=== PATIENT | female | born 1990 | race Caucasian/White ===

== ENCOUNTER 2017-03-30 04:50 | Inpatient (IN) | payer OTHER ==
[2017-03-30] MEDS ORDERED: OXYTOCIN 20 UNITS/1000 ML NS 1,000 ML IV SCH (04:55)
[2017-03-30] MEDS ORDERED: METHYLERGONOVINE 0.2 MG/ML 1 ML AMP IM PRN (05:29)
[2017-03-30] MEDS ORDERED: CARBOPROST TROMETHAMINE 250 MCG/ML 1 ML AMP IM PRN (05:29)
[2017-03-30] MEDS ORDERED: LIDOCAINE 1% (PF) 10 MG/ML (30 ML SDV) SQ PRN (05:29)
[2017-03-30] MEDS ORDERED: OXYTOCIN 10 UNIT/ML 1 ML VIAL IM PRN (05:29)
[2017-03-30] MEDS ORDERED: TERBUTALINE 1 MG/ML VIAL SQ PRN (05:29)
[2017-03-30] MEDS ORDERED: LACTATED RINGERS 1,000 ML IV SCH (05:30)
[2017-03-30 05:43] VITALS: BMI 41.8
[2017-03-30 05:52] LABS: Basophils % (A) 0 %; Eosinophils % (A) 0 %; HCT 32.9 % (34.0-46.0); HGB 10.9 gm/dL (11.4-16.0); Lymphocytes % (A) 6 %; MCH 27.5 pg (25.0-35.0); MCHC 33.1 g/dL (31.0-37.0); MCV 82.9 fL (80.0-100.0); Mean Platelet Volume 9.2; Monocytes # (A) 0.6 k/uL (0-1.0); Monocytes % (A) 3 %; Neutrophils # (A) 15.1 k/uL (1.3-7.7); Neutrophils % (A) 90 %; Platelet Count 220 k/uL (150-450); RBC 3.97 m/uL (3.80-5.40); RDW 14.1 % (11.5-15.5); WBC 16.8 k/uL (3.8-10.6)
--- NOTE | 2017-03-30 08:04 | P.HPOB ---
History of Present Illness H&P Date: 03/30/17 This is a 26-year-old white female 3 para now and P4 2817 EDC 2- 18 at 37-4/7 weeks' gestation. Patient presented to our hospital having delivered a baby at home. She is unknown to me or this institution, followed by Dr. Irma Martinez at [facility]. She states that at 3:00 this morning she broke her water in bad, color unknown. She rapidly went into active labor and delivered a male infant in her bed at 0340 hours. EMS had just arrived. The placenta delivered spontaneously in the EMS vehicle approximately 15 minutes later, at 0355. Patient states that this time her bleeding is minimal. She has minimal cramping. infant is in the nursery and appears to be doing well. Past medical history is significant for obesity only. Past surgical history tonsillectomy and adenoidectomy as a child. Current medications vitamins daily. ALLERGIES latex to which reports a [place] a rash. Social history is significant for tobacco smoking since the age of 17, patient admits to one half pack per day. She is single, father of the baby Peewee is involved. Patient denies marijuana heroin and opiate or other drug use. Past obstetric history normal spontaneous vaginal delivery of a liveborn female 6 lbs. 9 oz. in 2012. Patient states she had a very early ectopic that spontaneously resolved in 2014. history blood type A+, rubella status immune. Group B strep cultures negative. Gonorrhea and chlamydia cultures negative. On exam this is a pleasant white female, 5 foot 5 inches, 251 pounds, blood pressure on admission 94/53, pulse 88. Patient is afebrile. The general physical exam is within normal limits. The fundus is firm at this time, symmetric, mobile, 18 week size, midline, nontender. There are active bowel sounds. The chest is clear in all esqueda. The extremities reveal no edema. Inspection of the cervix, vagina, perineum, periurethral, and perirectal areas reveals a very small abrasion-type lesion at 6:00 that is superficial, not bleeding, and not needing of suture material. is a male, 6 pounds 8.4 ounces, 2960 g. He is in the nursery at this time under evaluation. Impression: 37-4/7 weeks intrauterine with care elsewhere, status post delivery at home with EMS present. Currently doing well. Plan: Continue care at this time. Likely discharge home tomorrow. We will obtain all records from [facility] for review. Review of Systems Constitutional: Reports as per HPI Past Medical History Additional Past Medical History / Comment(s): ENDOMETROSIS History of Any Multi-Drug Resistant Organisms: None Reported Past Surgical History: Adenoidectomy, Tonsillectomy Past Anesthesia/Blood Transfusion Reactions: Postoperative Nausea & Vomiting ( PONV) Past Psychological History: No Psychological Hx Reported Smoking Status: Current every day smoker Past Alcohol Use History: None Reported Past Drug Use History: None Reported - Past Family History Father Family Medical History: Diabetes Mellitus Medications and Allergies Home Medications Medication Instructions Recorded Confirmed Type Ranitidine HCl [Zantac] 150 mg PO HS 03/30/17 03/30/17 History Allergies Allergy/AdvReac Type Severity Reaction Status Date / Time latex Allergy Rash/Hives Verified 03/30/17 05:13 Exam - Vital Signs Vital signs: Vital Signs Temp Pulse Resp BP Pulse Ox 03/30/17 06:45 65 16 110/56 03/30/17 06:15 65 16 114/58 03/30/17 06:00 68 16 110/63 03/30/17 05:45 63 16 110/59 03/30/17 05:30 88 16 94/53 97 03/30/17 05:15 97.5 F L 81 16 92/51 97 03/30/17 04:55 97.5 F L 81 16 92/51 97 Intake and Output 03/29/17 03/30/17 03/30/17 22:59 06:59 14:59 Other: # Voids 0 Weight 113.852 kg Under HPI pleaseSee disctation please Results Result Diagrams: 03/30/17 05:15 Abnormal Lab Results - Last 24 Hours (Table) 03/30/17 Range/Units 05:15 WBC 16.8 H (3.8-10.6) k/uL Hgb 10.9 L (11.4-16.0) gm/dL Hct 32.9 L (34.0-46.0) % Neutrophils # 15.1 H (1.3-7.7) k/uL Assessment and Plan Plan: Continue post care. [place] in nursery . Possible discharge home tomorrow. Time with Patient: Greater than 30
[2017-03-30 12:23] VITALS: BP 110/59; PULSE 84; RESP 16; TEMP 98
--- NOTE | 2017-03-30 12:41 | P.DS ---
Providers Date of admission: 03/30/17 04:50 Expected date of discharge: 03/30/17 Attending physician: Sonja Martínez Primary care physician: Stated None Hospital Course: a 26-year-old female 3 para 2011 who presented at 37-4/7 weeks' gestation. Patient had her care at another institution, [facility]. She delivered a liveborn male at home, placenta delivered in the EMS vehicle. They presented for evaluation. care appears to be essentially unremarkable, please see my dictated history and physical for details. The patient at this point is doing well. She is voiding, ambulating and passing flatus without difficulty. Vital signs are stable and she is afebrile. She has minimal to moderate lochia rubra, no large clots. Pain is well controlled. Breasts are not engorged. [place] infant is in the nursery and will remain here for a period of time for antibiotics and stabilization. Patient's perineal body is clean and dry. She is requesting discharge home at this time. Patient is therefore being discharged home. She is in good condition for discharge. She will follow-up with her own physician in 6 weeks. She has an appointment already scheduled with that individual this Wednesday. I have reminded the patient to continue taking her vitamin daily. She will use [id number] products as needed for pain, she is declining option for prescription medication. I've asked her to call her physician with any fevers shakes or chills, foul smelling or copious lochia, with the passage of large blood clots, with any pain not alleviated by [id number]-[id number] medications, or indeed with any concerns. I have provided her with a prescription for a double electric breast pump per her request. We have briefly reviewed contraceptive options, and again she will discuss this with her own private physician in the office. Patient Condition at Discharge: Good Plan - Discharge Summary New Discharge Prescriptions: No Action Ranitidine HCl [Zantac] 150 mg PO HS Discharge Medication List Ranitidine HCl [Zantac] 150 mg PO HS 03/30/17 [History] Discharge Disposition: HOME SELF-CARE
== END 2017-03-30 15:00 | disposition home or self-care (01) | DRG 776 ==
LOC: 4FBP 04:50
PROVIDERS: ADMIT Obstetrics & Gynecology; ATTEND Obstetrics & Gynecology
DX: O99.335 Smoking (tobacco) complicating the puerperium (principal); Z68.41 Body mass index [BMI] 40.0-44.9, adult; F17.200 Nicotine dependence, unspecified, uncomplicated; O99.215 Obesity complicating the puerperium; Z91.040 Latex allergy status; Z83.3 Family history of diabetes mellitus; Z79.899 Other long term (current) drug therapy; Z87.42 Personal history of other diseases of the female genital tract
CPT/HCPCS: 85025; 88307

== ENCOUNTER 2017-07-26 09:27 | Emergency (ER) | payer OTHER ==
[2017-07-26 09:38] VITALS: BP 130/67; PULSE 76; RESP 18; TEMP 98.3
[2017-07-26] MEDS ORDERED: CYCLOBENZAPRINE 10 MG TAB PO STA (10:06)
[2017-07-26] MEDS ORDERED: IBUPROFEN 800 MG TAB PO STA (10:06)
--- NOTE | 2017-07-26 10:07 | ED ---
General Adult HPI - General Chief complaint: Back Pain/Injury Stated complaint: back pain Time Seen by Provider: 07/26/17 09:49 Source: patient, RN notes reviewed Mode of arrival: ambulatory Limitations: no limitations - History of Present Illness Initial comments: Patient is a 26-year-old female presenting to the emergency room today with a chief complaint of increased lower back pain. She does admit that she has a who is 4 months at home. Patient states she has no specific injury but over the last 2-3 days she's been having increased lower back pain. She admits that it's worse with movements. She states worse with bending and twisting. States had a difficult time getting out of bed due to pain. Denies any bowel or bladder incontinence or retention. Denies any saddle anesthesia. Denies any lumbar radiculopathy. Patient says she's tried Tylenol at home with no relief. Patient is not breast-feeding. Patient denies any recent fever, chills, shortness of breath, chest pain, abdominal pain, nausea or vomiting, numbness or tingling, dysuria or hematuria, constipation or diarrhea, headaches or visual changes, or any other complaints. - Related Data Home Medications Medication Instructions Recorded Confirmed [place] 1 tab PO HS 07/26/17 07/26/17 Previous Rx's Medication Instructions Recorded Cyclobenzaprine [Flexeril] 10 mg PO TID #20 tab 07/26/17 Ibuprofen [Motrin] 800 mg PO Q6HR #30 tab 07/26/17 Allergies Allergy/AdvReac Type Severity Reaction Status Date / Time latex Allergy Rash/Hives Verified 07/26/17 09:51 Review of Systems ROS Statement: Those systems with pertinent positive or pertinent negative responses have been documented in the HPI. ROS Other: All systems not noted in ROS Statement are negative. Past Medical History Additional Past Medical History / Comment(s): ENDOMETROSIS History of Any Multi-Drug Resistant Organisms: None Reported Past Surgical History: Adenoidectomy, Tonsillectomy Past Anesthesia/Blood Transfusion Reactions: Postoperative Nausea & Vomiting ( PONV) Past Psychological History: No Psychological Hx Reported Smoking Status: Current every day smoker Past Alcohol Use History: None Reported Past Drug Use History: None Reported - Past Family History Father Family Medical History: Diabetes Mellitus General Exam - General Exam Comments Initial Comments: General: The patient is awake and alert, in no distress, and does not appear acutely ill. Eye: Pupils are equal, round and reactive to light, extra-ocular movements are intact. No nystagmus. There is normal conjunctiva bilaterally. No signs of icterus. Ears, nose, mouth and throat: There are moist mucous membranes and no oral lesions. Neck: The neck is supple, there is no tenderness or JVD. Cardiovascular: There is a regular rate and rhythm. No murmur, rub or gallop is appreciated. Respiratory: Lungs are clear to auscultation, respirations are non-labored, breath sounds are equal. No wheezes, stridor, rales, or rhonchi. Musculoskeletal: Normal ROM. No step-off or deformity of the thoracic and lumbar spine with no step-off deformity. Mild tenderness lower lumbar from L1 to L3. Peripheral she was discharged on the right side of the lumbar spine. Strength 5/5. Sensation intact. Pulses equal bilaterally 2+. Neurological: A&O x 3. CN II-XII intact, There are no obvious motor or sensory deficits. Coordination appears grossly intact. Speech is normal. Skin: Skin is warm and dry and no rashes or lesions are noted. Psychiatric: Cooperative, appropriate mood & affect, normal judgment. Limitations: no limitations Course Vital Signs 07/26/17 09:36 Temperature 98.3 F Pulse Rate 76 Respiratory 18 Rate Blood Pressure 130/67 O2 Sat by Pulse 96 Oximetry Medical Decision Making - Medical Decision Making Patient has mild tenderness lower lumbar no specific injury. Patient does have a at home is felt that symptoms of lower back pain are from picking up the child. Was discussed to try to bend with these as much as possible. Patient is not breast-feeding will be placed on anti-inflammatories for pain also advised that may use muscle relaxer but may make her drowsy and to be careful when using this. Advised to follow-up over the next 2 weeks if there is no improvement. Disposition Clinical Impression: Acute low back pain Disposition: HOME SELF-CARE Condition: Good Instructions: Acute Low Back Pain (ED) Additional Instructions: Please use medications as discussed that have been sent to your pharmacy. Please follow-up with family doctor in the next 2-5 days of symptoms have not improved. Please return to emergency room if the symptoms increase or worsen or for any other concerns. Prescriptions: Cyclobenzaprine [Flexeril] 10 mg PO TID #20 tab Ibuprofen [Motrin] 800 mg PO Q6HR #30 tab Is patient prescribed a controlled substance at d/c from ED?: No Referrals: Nonstaff,Physician [Primary Care Provider] - 1-2 days Álvaro Louise DO [STAFF PHYSICIAN] - 1-2 days Time of Disposition: 10:04
== END 2017-07-26 10:25 | disposition home or self-care (01) ==
LOC: EC 09:27
DX: M54.5 Low back pain (principal); F17.200 Nicotine dependence, unspecified, uncomplicated; Z79.3 Long term (current) use of hormonal contraceptives; Z91.040 Latex allergy status
CPT/HCPCS: 99283

== ENCOUNTER 2017-09-13 11:46 | Emergency (ER) | payer OTHER ==
[2017-09-13 12:00] VITALS: TEMP 98.4
[2017-09-13 12:25] LABS: Appearance,Urine Cloudy (Clear); Bilirubin,Urine Negative (Negative); Blood,Urine Trace (Negative); Color,Urine Yellow; Glucose,Urine (UA) Negative (Negative); Ketones,Urine Negative (Negative); Leukocyte Esterase,Urine Moderate (Negative); Mucus,Urine Few /hpf; Nitrite,Urine Negative (Negative); Protein,Urine Negative (Negative); RBC,Urine 2 /hpf (0-5); Specific Gravity,Urine 1.018 (1.001-1.035); Squamous Epithelial Cell,Urine 8 /hpf (0-4); Urobilinogen,Urine <2.0 mg/dL (<2.0); WBC,Urine 13 /hpf (0-5)
[2017-09-13 12:27] LABS: Basophils # (A) 0.1 k/uL (0-0.2); Basophils % (A) 1 %; Eosinophils # (A) 0.3 k/uL (0-0.7); Eosinophils % (A) 2 %; HCT 37.2 % (34.0-46.0); HGB 12.5 gm/dL (11.4-16.0); Lymphocytes # (A) 2.2 k/uL (1.0-4.8); Lymphocytes % (A) 17 %; MCH 26.7 pg (25.0-35.0); MCHC 33.7 g/dL (31.0-37.0); MCV 79.3 fL (80.0-100.0); Mean Platelet Volume 8.5; Monocytes # (A) 0.5 k/uL (0-1.0); Monocytes % (A) 4 %; Neutrophils # (A) 9.7 k/uL (1.3-7.7); Neutrophils % (A) 76 %; Platelet Count 237 k/uL (150-450); WBC 12.8 k/uL (3.8-10.6)
[2017-09-13 12:39] LABS: ALT 23 U/L (9-52); AST 15 U/L (14-36); Alkaline Phosphatase 77 U/L (38-126); Anion Gap 11 mmol/L; Blood Urea Nitrogen 9 mg/dL (7-17); Calcium 9.4 mg/dL (8.4-10.2); Carbon Dioxide 26 mmol/L (22-30); Chloride 103 mmol/L (98-107); Glucose 120 mg/dL (74-99); Potassium 4.2 mmol/L (3.5-5.1); Sodium 140 mmol/L (137-145); Total Bilirubin 0.5 mg/dL (0.2-1.3); Total Protein 6.7 g/dL (6.3-8.2)
[2017-09-13] MEDS ORDERED: cefTRIAXone 1,000 MG VIAL (IM USE) IM STA (12:59)
--- NOTE | 2017-09-13 13:04 | ED ---
General Adult HPI - General Chief complaint: Back Pain/Injury Stated complaint: Sore Throat & Abd Pain Time Seen by Provider: 09/13/17 12:40 Source: patient, RN notes reviewed Mode of arrival: ambulatory Limitations: no limitations - History of Present Illness Initial comments: This is a 26-year-old female presented emergency Department chief complaint of sore throat and right flank pain. Patient states pain started in her throat yesterday and states her temperature she swallows. Patient has had a prior adenoidectomy and tonsillectomy. Patient reported fever this morning. She has not taken any Tylenol or Motrin. Patient states the pain is in her right side not worse with movement states nothing makes it feel better or worse this is a dull constant pain. She has no dysuria no hematuria this time. Patient reports no nausea vomiting diarrhea constipation. - Related Data Home Medications Medication Instructions Recorded Confirmed [place] 1 tab PO HS 07/26/17 07/26/17 Previous Rx's Medication Instructions Recorded Cyclobenzaprine [Flexeril] 10 mg PO TID #20 tab 07/26/17 Ibuprofen [Motrin] 800 mg PO Q6HR #30 tab 07/26/17 Sulfamethox-Tmp 800-160Mg [Bactrim 1 each PO Q12HR #20 tab 09/13/17 Ds] Allergies Allergy/AdvReac Type Severity Reaction Status Date / Time latex Allergy Rash/Hives Verified 09/13/17 12:00 Review of Systems ROS Statement: Those systems with pertinent positive or pertinent negative responses have been documented in the HPI. ROS Other: All systems not noted in ROS Statement are negative. Past Medical History Additional Past Medical History / Comment(s): ENDOMETROSIS History of Any Multi-Drug Resistant Organisms: None Reported Past Surgical History: Adenoidectomy, Tonsillectomy Past Anesthesia/Blood Transfusion Reactions: Postoperative Nausea & Vomiting ( PONV) Past Psychological History: No Psychological Hx Reported Smoking Status: Current every day smoker Past Alcohol Use History: None Reported Past Drug Use History: None Reported - Past Family History Father Family Medical History: Diabetes Mellitus General Exam Limitations: no limitations General appearance: alert, in no apparent distress Head exam: Present: atraumatic, normocephalic, normal inspection Eye exam: Present: normal appearance, PERRL, EOMI. Absent: scleral icterus, conjunctival injection, periorbital swelling ENT exam: Present: normal exam, normal oropharynx, mucous membranes moist, TM's normal bilaterally Neck exam: Present: normal inspection, full ROM. Absent: tenderness, meningismus, lymphadenopathy Respiratory exam: Present: normal lung sounds bilaterally. Absent: respiratory distress, wheezes, rales, rhonchi, stridor Cardiovascular Exam: Present: regular rate, normal rhythm, normal heart sounds. Absent: systolic murmur, diastolic murmur, rubs, gallop, clicks GI/Abdominal exam: Present: soft, normal bowel sounds. Absent: distended, tenderness, guarding, rebound, rigid Back exam: Present: CVA tenderness (R). Absent: CVA tenderness (L) Skin exam: Present: warm, dry, intact, normal color. Absent: rash Course Vital Signs 09/13/17 11:58 Temperature 98.4 F Pulse Rate 108 H Respiratory 18 Rate Blood Pressure 133/84 O2 Sat by Pulse 98 Oximetry Medical Decision Making - Medical Decision Making 26-year-old female presented for sore throat, right flank pain. Patient has negative strep most likely viral pharyngitis. Patient does have mild CVA tenderness on the right and some RBCs in her urine. This concerning for early pyelonephritis. Patient was given Rocephin, Bactrim outpatient. Return parameters were discussed. - Lab Data Result diagrams: 09/13/17 12:18 09/13/17 12:18 Lab Results 09/13/17 09/13/17 09/13/17 Range/Units 12:00 12:00 12:18 WBC 12.8 H (3.8-10.6) k/uL RBC 4.70 (3.80-5.40) m/uL Hgb 12.5 (11.4-16.0) gm/dL Hct 37.2 (34.0-46.0) % MCV 79.3 L (80.0-100.0) fL MCH 26.7 (25.0-35.0) pg MCHC 33.7 (31.0-37.0) g/dL RDW 14.0 (11.5-15.5) % Plt Count 237 (150-450) k/uL Neutrophils % 76 % Lymphocytes % 17 % Monocytes % 4 % Eosinophils % 2 % Basophils % 1 % Neutrophils # 9.7 H (1.3-7.7) k/uL Lymphocytes # 2.2 (1.0-4.8) k/uL Monocytes # 0.5 (0-1.0) k/uL Eosinophils # 0.3 (0-0.7) k/uL Basophils # 0.1 (0-0.2) k/uL Sodium (137-145) mmol/L Potassium (3.5-5.1) mmol/L Chloride (98-107) mmol/L Carbon Dioxide (22-30) mmol/L Anion Gap mmol/L BUN (7-17) mg/dL Creatinine (0.52-1.04) mg/dL Est GFR (CKD-EPI)AfAm (>60 ml/min/1.73 sqM) Est GFR (CKD-EPI)NonAf (>60 ml/min/1.73 sqM) Glucose (74-99) mg/dL Calcium (8.4-10.2) mg/dL Total Bilirubin (0.2-1.3) mg/dL AST (14-36) U/L ALT (9-52) U/L Alkaline Phosphatase (38-126) U/L Total Protein (6.3-8.2) g/dL Albumin (3.5-5.0) g/dL Urine Color Yellow Urine Appearance Cloudy H (Clear) Urine pH 5.0 (5.0-8.0) Ur Specific [place] 1.018 (1.001-1.035) Urine Protein Negative (Negative) Urine Glucose (UA) Negative (Negative) Urine Ketones Negative (Negative) Urine Blood Trace H (Negative) Urine Nitrite Negative (Negative) Urine Bilirubin Negative (Negative) Urine Urobilinogen <2.0 (<2.0) mg/dL Ur Leukocyte Esterase Moderate H (Negative) Urine RBC 2 (0-5) /hpf Urine WBC 13 H (0-5) /hpf Ur Squamous Epith Cells 8 H (0-4) /hpf Urine Mucus Few H (None) /hpf Urine HCG, Qual Not Detected (Not Detectd) Group A Strep Rapid (Negative) 09/13/17 09/13/17 Range/Units 12:18 12:18 WBC (3.8-10.6) k/uL RBC (3.80-5.40) m/uL Hgb (11.4-16.0) gm/dL Hct (34.0-46.0) % MCV (80.0-100.0) fL MCH (25.0-35.0) pg MCHC (31.0-37.0) g/dL RDW (11.5-15.5) % Plt Count (150-450) k/uL Neutrophils % % Lymphocytes % % Monocytes % % Eosinophils % % Basophils % % Neutrophils # (1.3-7.7) k/uL Lymphocytes # (1.0-4.8) k/uL Monocytes # (0-1.0) k/uL Eosinophils # (0-0.7) k/uL Basophils # (0-0.2) k/uL Sodium 140 (137-145) mmol/L Potassium 4.2 (3.5-5.1) mmol/L Chloride 103 (98-107) mmol/L Carbon Dioxide 26 (22-30) mmol/L Anion Gap 11 mmol/L BUN 9 (7-17) mg/dL Creatinine 0.60 (0.52-1.04) mg/dL Est GFR (CKD-EPI)AfAm >90 (>60 ml/min/1.73 sqM) Est GFR (CKD-EPI)NonAf >90 (>60 ml/min/1.73 sqM) Glucose 120 H (74-99) mg/dL Calcium 9.4 (8.4-10.2) mg/dL Total Bilirubin 0.5 (0.2-1.3) mg/dL AST 15 (14-36) U/L ALT 23 (9-52) U/L Alkaline Phosphatase 77 (38-126) U/L Total Protein 6.7 (6.3-8.2) g/dL Albumin 4.0 (3.5-5.0) g/dL Urine Color Urine Appearance (Clear) Urine pH (5.0-8.0) Ur Specific [place] (1.001-1.035) Urine Protein (Negative) Urine Glucose (UA) (Negative) Urine Ketones (Negative) Urine Blood (Negative) Urine Nitrite (Negative) Urine Bilirubin (Negative) Urine Urobilinogen (<2.0) mg/dL Ur Leukocyte Esterase (Negative) Urine RBC (0-5) /hpf Urine WBC (0-5) /hpf Ur Squamous Epith Cells (0-4) /hpf Urine Mucus (None) /hpf Urine HCG, Qual (Not Detectd) Group A Strep Rapid Negative (Negative) Disposition Clinical Impression: Pyelonephritis, Right flank pain, Acute pharyngitis Disposition: HOME SELF-CARE Condition: Stable Instructions: Kidney Infection (ED) Additional Instructions: Please return to the Emergency Department if symptoms worsen or any other concerns. Prescriptions: Sulfamethox-Tmp 800-160Mg [Bactrim Ds] 1 each PO Q12HR #20 tab Is patient prescribed a controlled substance at d/c from ED?: No Referrals: Laura Payan MD [Primary Care Provider] - 1-2 days Time of Disposition: 13:03
[2017-09-13 13:31] VITALS: BP 125/67; PULSE 100; RESP 20
== END 2017-09-13 13:31 | disposition home or self-care (01) ==
LOC: EC 11:46
DX: N12 Tubulo-interstitial nephritis, not specified as acute or chronic (principal); J02.9 Acute pharyngitis, unspecified; F17.200 Nicotine dependence, unspecified, uncomplicated; Z79.3 Long term (current) use of hormonal contraceptives; Z91.040 Latex allergy status; Z98.890 Other specified postprocedural states
CPT/HCPCS: 36415; 80053; 85025; 81001; 81025; 87086; 87081; 87430; 99283; 96372; J0696

== ENCOUNTER 2019-02-16 16:01 | Emergency (ER) | payer OTHER ==
[2019-02-16 16:09] VITALS: PULSE 86; RESP 16
[2019-02-16 16:28] LABS: Amorphous Sediment,Urine Rare /hpf; Appearance,Urine Clear (Clear); Bacteria,Urine Rare /hpf; Bilirubin,Urine Negative (Negative); Blood,Urine Trace (Negative); Color,Urine Yellow; Glucose,Urine (UA) Negative (Negative); Ketones,Urine Negative (Negative); Leukocyte Esterase,Urine Small (Negative); Mucus,Urine Few /hpf; Nitrite,Urine Negative (Negative); PH, Urine 5.5 (5.0-8.0); Protein,Urine Negative (Negative); RBC,Urine 2 /hpf (0-5); Squamous Epithelial Cell,Urine 1 /hpf (0-4); Urobilinogen,Urine <2.0 mg/dL (<2.0)
--- NOTE | 2019-02-16 16:54 | ED ---
Female Urogenital HPI - General Chief complaint: Abdominal Pain Stated complaint: Abd pain/cramping, Time Seen by Provider: 02/16/19 16:30 Source: family, RN notes reviewed, old records reviewed Mode of arrival: ambulatory Limitations: no limitations - History of Present Illness Initial comments: This is a 28-year-old female [place] for evaluation positive test was about 2 months. Patient coming in for evaluation having mild abdominal cramping suprapubic cramping diffuse with no specific pain or stabbing pain. No vaginal bleeding or loss of fluid no nausea vomiting no other significant complaints or symptoms. Patient does have OB that she will follow with. Patient has no recent fevers or any other significant complaints. Symptoms started yesterday crampy in nature and persistent throughout today. History of 1 prior miscarriage MD Complaint: other (Abdominal suprapubic cramping) -: days(s) Location: suprapubic Severity: mild Severity scale (1-10): 3 Quality: cramping Consistency: intermittent, now resolved Improves with: none Worsens with: none Last Menstrual Period: 12/13/18 Patient : Yes - Related Data Home Medications Medication Instructions Recorded Confirmed [place] 1 tab PO HS 07/26/17 07/26/17 Previous Rx's Medication Instructions Recorded Cyclobenzaprine [Flexeril] 10 mg PO TID #20 tab 07/26/17 Ibuprofen [Motrin] 800 mg PO Q6HR #30 tab 07/26/17 Sulfamethox-Tmp 800-160Mg [Bactrim 1 each PO Q12HR #20 tab 09/13/17 Ds] Allergies Allergy/AdvReac Type Severity Reaction Status Date / Time latex Allergy Rash/Hives Verified 02/16/19 16:09 Review of Systems ROS Statement: Those systems with pertinent positive or pertinent negative responses have been documented in the HPI. ROS Other: All systems not noted in ROS Statement are negative. Past Medical History Additional Past Medical History / Comment(s): ENDOMETROSIS History of Any Multi-Drug Resistant Organisms: None Reported Past Surgical History: Adenoidectomy, Tonsillectomy Past Anesthesia/Blood Transfusion Reactions: Postoperative Nausea & Vomiting (PONV) Past Psychological History: No Psychological Hx Reported Smoking Status: Former smoker Past Alcohol Use History: None Reported Past Drug Use History: None Reported - Past Family History Father Family Medical History: Diabetes Mellitus General Exam Limitations: no limitations General appearance: alert, in no apparent distress Head exam: Present: atraumatic, normocephalic, normal inspection Eye exam: Present: normal appearance, PERRL, EOMI. Absent: scleral icterus, conjunctival injection, periorbital swelling ENT exam: Present: normal exam, mucous membranes moist Neck exam: Present: normal inspection. Absent: tenderness, meningismus, lymphadenopathy Respiratory exam: Present: normal lung sounds bilaterally. Absent: respiratory distress, wheezes, rales, rhonchi, stridor Cardiovascular Exam: Present: regular rate, normal rhythm, normal heart sounds. Absent: systolic murmur, diastolic murmur, rubs, gallop, clicks GI/Abdominal exam: Present: soft, normal bowel sounds. Absent: distended, tenderness, guarding, rebound, rigid Extremities exam: Present: normal inspection, full ROM, normal capillary refill. Absent: tenderness, pedal edema, joint swelling, calf tenderness Back exam: Present: normal inspection Neurological exam: Present: alert, oriented X3, CN II-XII intact Psychiatric exam: Present: normal affect, normal mood Skin exam: Present: warm, dry, intact, normal color. Absent: rash Course Vital Signs 02/16/19 16:07 Temperature 98.2 F Pulse Rate 86 Respiratory 16 Rate Blood Pressure 138/81 O2 Sat by Pulse 100 Oximetry - Reevaluation(s) Reevaluation #1: 02/16/19 18:24 Medical records reviewed Reevaluation #2: 02/16/19 18:24 Will send quantitative beta hCG and patient follow up with OB Reevaluation #3: 02/16/19 18:24 Spoke with The patient family at length questions are answered Medical Decision Making - Medical Decision Making 28 female to the ER for evaluation early , gestational sac seen on ultrasound. Patient will continue follow-up with OB return if symptoms worsen bleeding or severe pain - Lab Data Lab Results 02/16/19 Range/Units 16:12 Urine Color Yellow Urine Appearance Clear (Clear) Urine pH 5.5 (5.0-8.0) Ur Specific [place] 1.030 (1.001-1.035) Urine Protein Negative (Negative) Urine Glucose (UA) Negative (Negative) Urine Ketones Negative (Negative) Urine Blood Trace H (Negative) Urine Nitrite Negative (Negative) Urine Bilirubin Negative (Negative) Urine Urobilinogen <2.0 (<2.0) mg/dL Ur Leukocyte Esterase Small H (Negative) Urine RBC 2 (0-5) /hpf Urine WBC 2 (0-5) /hpf Ur Squamous Epith Cells 1 (0-4) /hpf Amorphous Sediment Rare H (None) /hpf Urine Bacteria Rare H (None) /hpf Urine Mucus Few H (None) /hpf - Radiology Data Radiology results: report reviewed (US POSITIVE FOR GESTATIONAL SACK EARLY ), image reviewed Disposition Clinical Impression: Early stage of Disposition: HOME SELF-CARE Condition: Good Instructions (If sedation given, give patient instructions): Abdominal Pain in (ED) Is patient prescribed a controlled substance at d/c from ED?: No Referrals: Laura Payan MD [Primary Care Provider] - 1-2 days
--- NOTE | 2019-02-16 18:18 | US ---
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 Unknown LMP. Cramping. No spotting. EXAM PERFORMED: Transabdominal (TA) EXAM MEASUREMENTS: GESTATIONAL AGE / DATING Dates by LMP: LMP unknown Dates by First Scan: No previous this is first scan Dates by Current Scan for: Unable to date by today's study MATERNAL ANATOMY Uterus: 8.9 x 6.3 x 4.2 cm Right Ovary: 3.6 x 2.3 x 2.4 cm Left Ovary: 2.9 x 1.7 x 1.8 cm Post CDS / Adnexa: no free fluid Presence of free fluid: no Presence of corpus luteal cyst: right ovarian rouinded focus with peripheral vascular flow measuring 2.1 x 2.0 x 2.1 cm Presence of subchorionic bleed: no GESTATION / SURVEY MSD: 0.6 cm, too small to determine dates IUP: GS visualized in endometrial canal Date of LMP: Unknown LMP, Beta HcG (if available): Not available at this time IMPRESSION: Positive for intrauterine with gestational sac visualized in endometrial canal; too small t o determine dates. No visulaized yolk sac or embryonic pole at this time.
[2019-02-16 18:40] VITALS: BP 104/62; TEMP 97.9
== END 2019-02-16 18:44 | disposition home or self-care (01) ==
LOC: EC 16:01
DX: Z34.90 Encounter for supervision of normal pregnancy, unspecified, unspecified trimester (principal); Z79.3 Long term (current) use of hormonal contraceptives; Z91.040 Latex allergy status; Z87.891 Personal history of nicotine dependence
CPT/HCPCS: 76801; 81001; 99284

== ENCOUNTER 2019-05-05 09:17 | Emergency (ER) | payer OTHER ==
[2019-05-05 09:23] VITALS: RESP 18
[2019-05-05] MEDS ORDERED: diphenhydrAMINE 50 MG/ML 1 ML VIAL IVP STA ×2 (09:52→14:45)
[2019-05-05] MEDS ORDERED: METOCLOPRAMIDE 5 MG/ML 2 ML VIAL IVP STA (09:52)
[2019-05-05] MEDS ORDERED: ACETAMINOPHEN TAB 500 MG TAB PO STA ×2 (09:52→18:41)
[2019-05-05] MEDS ORDERED: SODIUM CHLORIDE 0.9% 1,000 ML IV STA (09:52)
--- NOTE | 2019-05-05 10:14 | ED ---
General Adult HPI - General Source: patient, RN notes reviewed, old records reviewed Mode of arrival: ambulatory Limitations: no limitations <Stacia Valero - Last Filed: 05/05/19 17:43> <Jed Schneider - Last Filed: 05/05/19 18:12> - General Chief complaint: Headache Stated complaint: headache, 17 wks preg Time Seen by Provider: 05/05/19 09:26 - History of Present Illness Initial comments: Set 28-year-old female presents emergency department today with 3 weeks of headache. She is approximately 17 weeks . She is a female. Patient reports that she's been having this headache for the past 3 weeks. She states that Tylenol and occasional motrin has not been helping. She was seen at [facility] and was given migraine cocktail sent home on Wednesday. Patient OBGYN is Dr. Martinez. 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 Patient states that she feels a pressure and pain behind her eyes. Patient states that she has had no nausea or vomiting. Headache is worse with bright lights and loud noises. (Stacia Valero) - Related Data Home Medications Medication Instructions Recorded Confirmed Ferrous Sulfate [Feosol] 325 mg PO DAILY 05/05/19 05/05/19 Hxt-Lonm-Tkonu Acid 1 cap PO DAILY 05/05/19 05/05/19 [-U Capsule (formulary)] Allergies Allergy/AdvReac Type Severity Reaction Status Date / Time latex Allergy Rash/Hives Verified 05/05/19 11:36 Review of Systems ROS Other: All systems not noted in ROS Statement are negative. <Stacia Valero - Last Filed: 05/05/19 17:43> ROS Other: All systems not noted in ROS Statement are negative. <Jed Schneider - Last Filed: 05/05/19 18:12> ROS Statement: Those systems with pertinent positive or pertinent negative responses have been documented in the HPI. Past Medical History Additional Past Medical History / Comment(s): ENDOMETROSIS History of Any Multi-Drug Resistant Organisms: None Reported Past Surgical History: Adenoidectomy, Tonsillectomy Past Anesthesia/Blood Transfusion Reactions: Postoperative Nausea & Vomiting (PONV) Past Psychological History: Anxiety, Depression Smoking Status: Former smoker Past Alcohol Use History: None Reported Past Drug Use History: None Reported - Past Family History Father Family Medical History: Diabetes Mellitus <Stacia Valero - Last Filed: 05/05/19 17:43> General Exam Limitations: no limitations General appearance: alert, in no apparent distress Head exam: Present: atraumatic, normocephalic, normal inspection Eye exam: Present: normal appearance, PERRL, EOMI, other (Possible papilledema bilaterally, unable to fully acess due to non dilated exam. ). Absent: scleral icterus, conjunctival injection, periorbital swelling ENT exam: Present: normal exam, mucous membranes moist Neck exam: Present: normal inspection. Absent: tenderness, meningismus, lymphadenopathy Respiratory exam: Present: normal lung sounds bilaterally. Absent: respiratory distress, wheezes, rales, rhonchi, stridor Cardiovascular Exam: Present: regular rate, normal rhythm, normal heart sounds. Absent: systolic murmur, diastolic murmur, rubs, gallop, clicks GI/Abdominal exam: Present: soft, normal bowel sounds. Absent: distended, tende rness, guarding, rebound, rigid Extremities exam: Present: normal inspection, full ROM, normal capillary refill. Absent: tenderness, pedal edema, joint swelling, calf tenderness Back exam: Present: normal inspection Neurological exam: Present: alert, oriented X3, CN II-XII intact Expanded Patient oriented to: Present: person, place, time Speech: Present: fluid speech Cranial nerves: EOM's Intact: Normal Cerebellar function: Finger to Nose: Normal Upper motor neuron: José Miguel Neglect: Normal Sensory exam: Upper Extremity Light Touch: Normal, Lower Extremity Light Touch: Normal Motor strength exam: RUE: 5, LUE: 5, RLE: 5, LLE: 5 Psychiatric exam: Present: normal affect, normal mood Skin exam: Present: warm, dry, intact, normal color. Absent: rash <Stacia Valero - Last Filed: 05/05/19 17:43> - General Exam Comments Initial Comments: 28-year-old female. Alert and oriented 3. No significant distress. (Stacia Banda) Course <Stacia Valero - Last Filed: 05/05/19 17:43> <Jed Schneider - Last Filed: 05/05/19 18:12> Vital Signs 05/05/19 05/05/19 05/05/19 09:20 13:23 17:29 Temperature 97.9 F Pulse Rate 81 71 74 Respiratory 18 18 18 Rate Blood Pressure 140/83 132/56 140/70 O2 Sat by Pulse 100 99 100 Oximetry - Reevaluation(s) Reevaluation #1: 05/05/19 10:[address] Delacruz who will be down to the emergency department to evaluate Patient. Recommended ordering Fioricet, but patient did not take as she has taken tylenol recently 05/05/19 17:43 (Stacia Valero) Reevaluation #2: 05/05/19 16:18 is reevaluated, and bed setting her headache is a 6 out of 10. Patient reports she does not want anything more for her headache or pain at this time. I did get consent from patient's SH[employer] Dr. Martinez about proceeding with an MRI. (Stacia Valero) Reevaluation #3: 05/05/19 16:[address] Delacruz wants to be consulted when the patient's MRI is back. (Stacia Valero) Reevaluation #4: 05/05/19 18:11 Ultrasound had been performed, heart tones at 144. (Jed Schneider) Medical Decision Making - Lab Data Result diagrams: 05/05/19 10:20 05/05/19 10:20 - Radiology Data Radiology results: report reviewed <Stacia Valero - Last Filed: 05/05/19 17:43> - Lab Data Result diagrams: 05/05/19 10:20 05/05/19 10:20 <Jed Schneider - Last Filed: 05/05/19 18:12> - Medical Decision Making 28-year-old female Joceline 17 weeks . She presents today for headache. This headache for the past 3 weeks. She has no acute neurological deficits. She reports she states it seems to be frontal headache and complains of some pain behind her eyes. Patient case was discussed with Dr. Solares whom is On-Call Neurologist, whom came to evaluate the Patient. Recommended Proceeding with an MR Venogram and MRI without contrast for patient headache and being . Patient's Headache Did Improve Somewhat with Reglan Benadryl and Fluids and Tylenol. She Was Able to Eat in the Emergency Department. Patient's Labs Are Otherwise Unremarkable. Ultrasound Was Completed Showed Viable IUP with Heart Rate Measured 145 Bpm. Patient's Case Was Signed out to Attending Physician at 5:00pm Pending Results of MR Venogram. Dr. Solares States He Wants to Be Consulted in Regards to the Findings. MR venogram was read by radiologist Dr. Joel shows concern for possible sinus thrombosis. Patient be started on heparin. Patient informed of this. Patient's case was discussed then with Dr. Schneider and Dr. Solares, and will facilitate a transfer. (Stacia Valero) Patient's care was signed out to me at shift change at 5 PM awaiting MRI. Patient had previously been evaluated by neurology who recommended MRI/MRA V4 concern for thrombus. Initial MRI report was negative for sinus thrombosis however felt to be a filling defect on reevaluation, addendum was added to his MRI report. Patient was initiated on heparin, recommendation from Dr. Delacruz the neurologist was for high-dose heparin with no bolus. This was initiated in the emergency department. I discussed case with the ER physician at [facility] Dr. Cohen, at 1740, will check with his OB regarding transfer. [facility] recommended transfer to [facility] discussed with covering neurology Dr. Gabriel as well as obstetrics, all parties agreeable with heparin and transfer at this time. (Jed Schneider) - Lab Data Lab Results 05/05/19 05/05/19 05/05/19 Range/Units 10:15 10:20 10:20 WBC 10.3 (3.8-10.6) k/uL RBC 4.34 (3.80-5.40) m/uL Hgb 11.8 (11.4-16.0) gm/dL Hct 35.2 (34.0-46.0) % MCV 81.0 (80.0-100.0) fL MCH 27.1 (25.0-35.0) pg MCHC 33.5 (31.0-37.0) g/dL RDW 14.5 (11.5-15.5) % Plt Count 210 (150-450) k/uL Neutrophils % 71 % Lymphocytes % 23 % Monocytes % 4 % Eosinophils % 1 % Basophils % 1 % Neutrophils # 7.3 (1.3-7.7) k/uL Lymphocytes # 2.3 (1.0-4.8) k/uL Monocytes # 0.4 (0-1.0) k/uL Eosinophils # 0.1 (0-0.7) k/uL Basophils # 0.1 (0-0.2) k/uL PT (9.0-12.0) sec INR (<1.2) APTT (22.0-30.0) sec Sodium 136 L (137-145) mmol/L Potassium 4.0 (3.5-5.1) mmol/L Chloride 106 (98-107) mmol/L Carbon Dioxide 21 L (22-30) mmol/L Anion Gap 9 mmol/L BUN 6 L (7-17) mg/dL Creatinine 0.36 L (0.52-1.04) mg/dL Est GFR (CKD-EPI)AfAm >90 (>60 ml/min/1.73 sqM) Est GFR (CKD-EPI)NonAf >90 (>60 ml/min/1.73 sqM) Glucose 82 (74-99) mg/dL Calcium 9.3 (8.4-10.2) mg/dL Magnesium 1.8 (1.6-2.3) mg/dL Total Bilirubin 0.5 (0.2-1.3) mg/dL AST 16 (14-36) U/L ALT 12 (4-34) U/L Alkaline Phosphatase 69 (38-126) U/L Total Protein 7.1 (6.3-8.2) g/dL Albumin 3.9 (3.5-5.0) g/dL Urine Color Light Yellow Urine Appearance Clear (Clear) Urine pH 6.0 (5.0-8.0) Ur Specific Devens 1.011 (1.001-1.035) Urine Protein Negative (Negative) Urine Glucose (UA) Negative (Negative) Urine Ketones Negative (Negative) Urine Blood Negative (Negative) Urine Nitrite Negative (Negative) Urine Bilirubin Negative (Negative) Urine Urobilinogen <2.0 (<2.0) mg/dL Ur Leukocyte Esterase Negative (Negative) 05/05/19 Range/Units 10:20 WBC (3.8-10.6) k/uL RBC (3.80-5.40) m/uL Hgb (11.4-16.0) gm/dL Hct (34.0-46.0) % MCV (80.0-100.0) fL MCH (25.0-35.0) pg MCHC (31.0-37.0) g/dL RDW (11.5-15.5) % Plt Count (150-450) k/uL Neutrophils % % Lymphocytes % % Monocytes % % Eosinophils % % Basophils % % Neutrophils # (1.3-7.7) k/uL Lymphocytes # (1.0-4.8) k/uL Monocytes # (0-1.0) k/uL Eosinophils # (0-0.7) k/uL Basophils # (0-0.2) k/uL PT 9.8 (9.0-12.0) sec INR 0.9 (<1.2) APTT 23.4 (22.0-30.0) sec Sodium (137-145) mmol/L Potassium (3.5-5.1) mmol/L Chloride (98-107) mmol/L Carbon Dioxide (22-30) mmol/L Anion Gap mmol/L BUN (7-17) mg/dL Creatinine (0.52-1.04) mg/dL Est GFR (CKD-EPI)AfAm (>60 ml/min/1.73 sqM) Est GFR (CKD-EPI)NonAf (>60 ml/min/1.73 sqM) Glucose (74-99) mg/dL Calcium (8.4-10.2) mg/dL Magnesium (1.6-2.3) mg/dL Total Bilirubin (0.2-1.3) mg/dL AST (14-36) U/L ALT (4-34) U/L Alkaline Phosphatase (38-126) U/L Total Protein (6.3-8.2) g/dL Albumin (3.5-5.0) g/dL Urine Color Urine Appearance (Clear) Urine pH (5.0-8.0) Ur Specific Devens (1.001-1.035) Urine Protein (Negative) Urine Glucose (UA) (Negative) Urine Ketones (Negative) Urine Blood (Negative) Urine Nitrite (Negative) Urine Bilirubin (Negative) Urine Urobilinogen (<2.0) mg/dL Ur Leukocyte Esterase (Negative) - Radiology Data Also showed heart tones of 1 44 bpm. Estimated delivery date is 10/14/2019. Patient is 16 weeks \6 days old. (Stacia Valero) Disposition Is patient prescribed a controlled substance at d/c from ED?: No Time of Disposition: 17:45 <Stacia Valero - Last Filed: 05/05/19 17:43> - Out of Hospital Transfer - Req. Specs Out of Hospital Transfer - Requested Specifics: Other Emergency Center (Transferred to [facility] <Jed Schneider - Last Filed: 05/05/19 18:12> Clinical Impression: Thrombosis transverse sinus, Disposition: OTHER INSTITUTION NOT DEFINED Condition: Stable Referrals: Laura Payan MD [Primary Care Provider] - 1-2 days
[2019-05-05] MEDS ORDERED: BUTALB/APAP/CAFF 50-325-40MG TAB PO STA (10:24)
[2019-05-05 10:33] LABS: Basophils # (A) 0.1 k/uL (0-0.2); Basophils % (A) 1 %; Eosinophils # (A) 0.1 k/uL (0-0.7); Eosinophils % (A) 1 %; HCT 35.2 % (34.0-46.0); HGB 11.8 gm/dL (11.4-16.0); Lymphocytes # (A) 2.3 k/uL (1.0-4.8); Lymphocytes % (A) 23 %; MCH 27.1 pg (25.0-35.0); MCHC 33.5 g/dL (31.0-37.0); Mean Platelet Volume 8.8; Monocytes # (A) 0.4 k/uL (0-1.0); Monocytes % (A) 4 %; Neutrophils # (A) 7.3 k/uL (1.3-7.7); Neutrophils % (A) 71 %; Platelet Count 210 k/uL (150-450); RBC 4.34 m/uL (3.80-5.40); RDW 14.5 % (11.5-15.5); WBC 10.3 k/uL (3.8-10.6)
[2019-05-05 10:33] LABS: Appearance,Urine Clear (Clear); Bilirubin,Urine Negative (Negative); Blood,Urine Negative (Negative); Color,Urine Light Yellow; Glucose,Urine (UA) Negative (Negative); Ketones,Urine Negative (Negative); Leukocyte Esterase,Urine Negative (Negative); Nitrite,Urine Negative (Negative); Protein,Urine Negative (Negative); Specific Gravity,Urine 1.011 (1.001-1.035); Urobilinogen,Urine <2.0 mg/dL (<2.0)
[2019-05-05 10:46] LABS: ALT 12 U/L (4-34); AST 16 U/L (14-36); African American GFR (CKD) >90 (>60 ml/min/1.73 sqM); Albumin 3.9 g/dL (3.5-5.0); Alkaline Phosphatase 69 U/L (38-126); Anion Gap 9 mmol/L; Blood Urea Nitrogen 6 mg/dL (7-17); Calcium 9.3 mg/dL (8.4-10.2); Carbon Dioxide 21 mmol/L (22-30); Chloride 106 mmol/L (98-107); Glucose 82 mg/dL (74-99); Magnesium 1.8 mg/dL (1.6-2.3); Non-African American GFR(CKD) >90 (>60 ml/min/1.73 sqM); Sodium 136 mmol/L (137-145); Total Bilirubin 0.5 mg/dL (0.2-1.3); Total Protein 7.1 g/dL (6.3-8.2)
--- NOTE | 2019-05-05 11:42 | US ---
EXAMINATION TYPE: US OB limited DATE OF EXAM: 05/05/2019 COMPARISON: NONE CLINICAL HISTORY: 17 weeks heart tones. Heart tones. Headaches EXAM PERFORMED: Transabdominal (TA) GESTATIONAL AGE / DATING Physician Established: (16 weeks/6 days) EDC: 10/14/2019 No growth performed on today?s study per ordering physician SURVEY HEART RATE: 144 bpm RHYTHM: Normal IMPRESSION: Limited exam, heart rate detected as described.
--- NOTE | 2019-05-05 15:16 | P.CNNES ---
History of Present Illness Consult date: 05/05/19 Requesting physician: Stacia Valero Reason for Consult: Cephalgia, History of Present Illness: Patient is a 28-year-old female, who has no history of migraines, or any kind of headaches, is currently 17 weeks , developed headache 3 weeks ago. It was initially mild involving the bifrontal region, but over time has progressed and now involves bitemporal region and also back of the head. The headache is very intense, rated 7/10. Patient states that she is feeling weak all over, moving slower, denies any numbness tingling diplopia, blurred vision or vomiting. She does feel nauseous at times. Patient did visit [facility] ER, who gave her migraine cocktail, sent home and recommended her to take Tylenol. Patient says that Tylenol is was working only in the beginning but stopped working. She tried Motrin, which worked only one time and the second time it did not. She also tried Esgic, which worked only for 1 day and then the headache came back. 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 Patient denies tobacco use at this time. She did smoke half pack per day off and on from age [age]. She stopped smoking since she became . Review of Systems As above in detail. Otherwise completely unremarkable. Denies any chest pain shortness of breath wheezing or cough. Past Medical History Additional Past Medical History / Comment(s): ENDOMETROSIS History of Any Multi-Drug Resistant Organisms: None Reported Past Surgical History: Adenoidectomy, Tonsillectomy Past Anesthesia/Blood Transfusion Reactions: Postoperative Nausea & Vomiting (PONV) Past Psychological History: Anxiety, Depression Smoking Status: Former smoker Past Alcohol Use History: None Reported Past Drug Use History: None Reported - Past Family History Father Family Medical History: Diabetes Mellitus Medications and Allergies Home Medications Medication Instructions Recorded Confirmed Type Ferrous Sulfate [Feosol] 325 mg PO DAILY 05/05/19 05/05/19 History Lmv-Pwxh-Wlljg Acid 1 cap PO DAILY 05/05/19 05/05/19 History [-U Capsule (formulary)] Allergies Allergy/AdvReac Type Severity Reaction Status Date / Time latex Allergy Rash/Hives Verified 05/05/19 11:36 Physical Examination - Vital Signs Vital Signs: Vital Signs Temp Pulse Resp BP Pulse Ox 05/05/19 09:20 97.9 F 81 18 140/83 100 Intake and Output 05/04/19 05/05/19 05/05/19 22:59 06:59 14:59 Other: Weight 113.398 kg On examination patient is a young female, who appears to be in distress, looks sick. Patient is otherwise alert and awake, fully oriented to time place and person. Speech and language functions are normal. Attention and concentration fund of knowledge is adequate. On cranial nerve examination pupils are round, equal, somewhat dilated, 5 mm, reacting to 4 mm bilaterally. Visual esqueda are full on confrontation, extraocular muscles are intact with no nystagmus. Funduscopic examination revealed evidence of obvious disc edema bilaterally. Spontaneous venous pulsations were not seen. Face is symmetric and tongue protrudes the midline. Palatal elevation sensation normal. On muscle strength testing there is no pronator drift and the strength is normal in arms and legs distally and proximally. Reflexes are 2+ and plantars downgoing sensory touch is equal. No ataxia for [id number] testing. Tone and bulk of muscles normal. No carotid bruit or murmur, peripheral pulses present. Results - Laboratory Findings CBC and BMP: 05/05/19 10:20 05/05/19 10:20 Abnormal Lab Findings: Abnormal Labs 05/05/19 10:20 Sodium 136 L Carbon Dioxide 21 L BUN 6 L Creatinine 0.36 L Assessment and Plan Assessment: * 28-year-old female, currently 17 weeks has developed new onset of constant headaches for the past 3 weeks, progressively getting worse. Started out bifrontal, then extended to bitemporal and now even involves back of the head. Her neurological examination revealed papilledema. Rule out cerebral venous sinus thrombosis, or other intracranial process or mass lesion. Plan: * Stat MRI of the brain without contrast and MRV of head. * Further management will be based upon above test results. ADDENDUM: 5:29 pm Patient underwent MRI of the brain. It was essentially normal. No acute ischemia. MRV of the brain revealed 8 mm segment of lack of venous signal in the transverse sinus on the right side. There is also possible small filling defects within the left side transverse sinus and sigmoid sinus that measures up to 5 mm. This is somewhat suspicious for bilateral transverse and sigmoid sinus limited vein thrombosis. Patient to be started on heparin drip DVT protocol, with no bolus. Suggest transfer to a tertiary care center for closer monitoring. Suggest neuro intervention evaluation as well.
--- NOTE | 2019-05-05 16:59 | MR ---
EXAMINATION TYPE: MR venography head wo con DATE OF EXAM: 05/05/2019 COMPARISON: HISTORY: Possible cerebral venous sinus thrombosis, Severe headache Magnetic resonance venographic images were obtained of the brain. There is venous flow demonstrated i n the superior sagittal sinus. There is venous flow in the sigmoid and straight sinuses. There is ernst w in both internal jugular veins. There is no evidence of vein thrombosis. IMPRESSION: Normal exam. No evidence of cerebral vein thrombosis.
--- NOTE | 2019-05-05 17:19 | MR ---
EXAMINATION TYPE: MR brain wo con DATE OF EXAM: 05/05/2019 COMPARISON: HISTORY: Possible cerebral venous sinus thrombosis, Severe headache Multiplanar multiecho imaging of the brain was performed without contrast. Ventricles and sulci appear normal. There is no mass effect nor midline shift. There is no evidence o f intracranial hemorrhage. Diffusion images show no evidence of cortical infarct. Rivers-white matter s tructures have normal signal pattern. There is no evidence of cerebral edema. Brainstem appears kyle l. Sella turcica is normal. Corpus callosum is normal. IMPRESSION: Normal MR scan of the brain.
[2019-05-05] MEDS ORDERED: HEPARIN SODIUM,PORCINE 5,000 UNIT/ML 1 ML VIAL IV PRN (17:26)
[2019-05-05] MEDS ORDERED: HEPARIN SOD,PORK IN 0.45% NACL 25,000 UNIT in 0.45% NACL 1 250ML.BAG IV SCH (17:30)
[2019-05-05 18:00] LABS: INR 0.9 (<1.2); Partial Thromboplastin Time 23.4 sec (22.0-30.0); Prothrombin Time 9.8 sec (9.0-12.0)
[2019-05-05 20:37] VITALS: BP 124/66; PULSE 79; TEMP 99.1
== END 2019-05-05 21:40 | disposition other institution (70) ==
LOC: EC 09:17
DX: O22.5 Cerebral venous thrombosis in pregnancy (principal); Z3A.16 16 weeks gestation of pregnancy; Z87.891 Personal history of nicotine dependence; Z91.040 Latex allergy status; Z87.42 Personal history of other diseases of the female genital tract
CPT/HCPCS: 99285 ×2; 96365 ×2; 96366 ×3; 96375 ×3; 96361 ×9; 36415; 80053; 83735; 85025; 85610; 85730; 81003; 76815; 70544; 70551; J1200; J2765; J1644

== ENCOUNTER 2019-10-16 14:41 | Emergency (ER) | payer OTHER ==
[2019-10-16 14:45] VITALS: TEMP 98.6
[2019-10-16] MEDS ORDERED: SODIUM CHLORIDE 0.9% 1,000 ML IV STA (14:52)
--- NOTE | 2019-10-16 14:58 | ED ---
Abdominal Pain HPI - General Chief Complaint: Abdominal Pain Stated Complaint: Lower Abd Pain Time Seen by Provider: 10/16/19 14:46 Source: patient Mode of arrival: ambulatory Limitations: no limitations - History of Present Illness Initial Comments: 28-year-old female patient presents to the emergency department today for evaluation of pelvic pain. Patient states that she had a vaginal delivery on 10/05/2019. She is G4, P3, with 3 vaginal deliveries. States that she was having her normal bleeding after the delivery. States she has been having sharp stabbing pains in her suprapubic region in her vaginal area. Initially she thought this may be normal however the pain has persisted has been getting worse. States yesterday she passed a large piece of "tissue", she believes it may have been part of her placenta. She states that she had an increase in bleeding after passing the tissue and today the bleeding has stopped completely. She did try to contact her OBGYN from [facility]. She has been unable to make an appointment and they told her to be evaluated in the emergency department today. Patient states she is uncomfortable with going back to [facility] so she presented here for further evaluation. She denies any fever or chills. States that her vaginal bleeding did smell different from her previous deliveries. Denies any back pain. Denies hematuria, dysuria, urinary frequency, urinary urgency. Patient denies any recent rash, cough, shortness of breath, chest pain, nausea, vomiting, diarrhea, constipation, numbness, tingling, dizziness, weakness, headache, visual changes, or any other complaints. - Related Data Home Medications Medication Instructions Recorded Confirmed Ferrous Sulfate [Feosol] 325 mg PO DAILY 05/05/19 05/05/19 [id number] Acid 1 cap PO DAILY 05/05/19 05/05/19 [-U Capsule (formulary)] Previous Rx's Medication Instructions Recorded Cephalexin [Keflex] 500 mg PO BID #14 cap 10/16/19 Allergies Allergy/AdvReac Type Severity Reaction Status Date / Time latex Allergy Rash/Hives Verified 10/16/19 14:45 Review of Systems ROS Statement: Those systems with pertinent positive or pertinent negative responses have been documented in the HPI. ROS Other: All systems not noted in ROS Statement are negative. Past Medical History Additional Past Medical History / Comment(s): ENDOMETROSIS History of Any Multi-Drug Resistant Organisms: None Reported Past Surgical History: Adenoidectomy, Tonsillectomy Past Anesthesia/Blood Transfusion Reactions: Postoperative Nausea & Vomiting (PONV) Past Psychological History: Anxiety, Depression Past Alcohol Use History: None Reported Past Drug Use History: None Reported - Past Family History Father Family Medical History: Diabetes Mellitus General Exam Limitations: no limitations General appearance: alert, in no apparent distress, other (This is a well- developed, well-nourished adult female patient in no acute distress. Vital signs upon presentation are temperature 98.6F, pulse 72, respirations 16, blood pressure 117/72, pulse ox 99% on room air) Respiratory exam: Present: normal lung sounds bilaterally. Absent: respiratory distress, wheezes, rales, rhonchi, stridor Cardiovascular Exam: Present: regular rate, normal rhythm, normal heart sounds. Absent: systolic murmur, diastolic murmur, rubs, gallop, clicks GI/Abdominal exam: Present: soft, tenderness (Suprapubic), normal bowel sounds. Absent: distended, guarding, rebound, rigid Neurological exam: Present: alert, oriented X3, CN II-XII intact Psychiatric exam: Present: normal affect, normal mood Skin exam: Present: warm, dry, intact, normal color. Absent: rash Course Vital Signs 10/16/19 14:42 Temperature 98.6 F Pulse Rate 72 Respiratory 16 Rate Blood Pressure 117/72 O2 Sat by Pulse 99 Oximetry Medical Decision Making - Medical Decision Making 28-year-old female patient who is 10 days presents to the emergency department today for evaluation of suprapubic cramping and pain. Physical examination did reveal some mild suprapubic tenderness. Labs reviewed and revealed normal white blood cell,. There is elevated white blood cells in the urine concerning for infection. Ultrasound of the pelvis was obtained and showed some mild fluid in the endometrial canal probably blood. No sign of a retained products. Good vascular flow to the ovaries. I did discuss findings and results with the patient. We'll start Keflex for urinary tract infection. She is instructed to follow-up with her [employer] for recheck if there is possible. She is instructed to discuss repeat hCG test. Return parameters were discussed in detail. She verbalizes understanding and agrees with this plan - Lab Data Result diagrams: 10/16/19 15:06 10/16/19 15:06 Lab Results 10/16/19 10/16/19 10/16/19 Range/Units 15:06 15:06 15:06 WBC 8.9 (3.8-10.6) k/uL RBC 4.53 (3.80-5.40) m/uL Hgb 11.8 (11.4-16.0) gm/dL Hct 36.9 (34.0-46.0) % MCV 81.4 (80.0-100.0) fL MCH 26.0 (25.0-35.0) pg MCHC 32.0 (31.0-37.0) g/dL RDW 13.7 (11.5-15.5) % Plt Count 288 (150-450) k/uL Neutrophils % 62 % Lymphocytes % 29 % Monocytes % 5 % Eosinophils % 2 % Basophils % 1 % Neutrophils # 5.5 (1.3-7.7) k/uL Lymphocytes # 2.6 (1.0-4.8) k/uL Monocytes # 0.4 (0-1.0) k/uL Eosinophils # 0.2 (0-0.7) k/uL Basophils # 0.1 (0-0.2) k/uL Sodium 139 (137-145) mmol/L Potassium 4.0 (3.5-5.1) mmol/L Chloride 109 H (98-107) mmol/L Carbon Dioxide 23 (22-30) mmol/L Anion Gap 7 mmol/L BUN 12 (7-17) mg/dL Creatinine 0.77 (0.52-1.04) mg/dL Est GFR (CKD-EPI)AfAm >90 (>60 ml/min/1.73 sqM) Est GFR (CKD-EPI)NonAf >90 (>60 ml/min/1.73 sqM) Glucose 105 H (74-99) mg/dL Plasma Lactic Acid Danial 0.9 (0.7-2.0) mmol/L Calcium 9.4 (8.4-10.2) mg/dL Total Bilirubin 0.3 (0.2-1.3) mg/dL AST 18 (14-36) U/L ALT 13 (4-34) U/L Alkaline Phosphatase 101 (38-126) U/L Total Protein 6.9 (6.3-8.2) g/dL Albumin 3.9 (3.5-5.0) g/dL Amylase 45 (30-110) U/L Lipase 44 (23-300) U/L HCG, Quant 5.3 mIU/mL Urine Color Urine Appearance (Clear) Urine pH (5.0-8.0) Ur Specific [place] (1.001-1.035) Urine Protein (Negative) Urine Glucose (UA) (Negative) Urine Ketones (Negative) Urine Blood (Negative) Urine Nitrite (Negative) Urine Bilirubin (Negative) Urine Urobilinogen (<2.0) mg/dL Ur Leukocyte Esterase (Negative) Urine RBC (0-5) /hpf Urine WBC (0-5) /hpf Ur Squamous Epith Cells (0-4) /hpf Amorphous Sediment (None) /hpf 10/16/19 Range/Units 15:08 WBC (3.8-10.6) k/uL RBC (3.80-5.40) m/uL Hgb (11.4-16.0) gm/dL Hct (34.0-46.0) % MCV (80.0-100.0) fL MCH (25.0-35.0) pg MCHC (31.0-37.0) g/dL RDW (11.5-15.5) % Plt Count (150-450) k/uL Neutrophils % % Lymphocytes % % Monocytes % % Eosinophils % % Basophils % % Neutrophils # (1.3-7.7) k/uL Lymphocytes # (1.0-4.8) k/uL Monocytes # (0-1.0) k/uL Eosinophils # (0-0.7) k/uL Basophils # (0-0.2) k/uL Sodium (137-145) mmol/L Potassium (3.5-5.1) mmol/L Chloride (98-107) mmol/L Carbon Dioxide (22-30) mmol/L Anion Gap mmol/L BUN (7-17) mg/dL Creatinine (0.52-1.04) mg/dL Est GFR (CKD-EPI)AfAm (>60 ml/min/1.73 sqM) Est GFR (CKD-EPI)NonAf (>60 ml/min/1.73 sqM) Glucose (74-99) mg/dL Plasma Lactic Acid Danial (0.7-2.0) mmol/L Calcium (8.4-10.2) mg/dL Total Bilirubin (0.2-1.3) mg/dL AST (14-36) U/L ALT (4-34) U/L Alkaline Phosphatase (38-126) U/L Total Protein (6.3-8.2) g/dL Albumin (3.5-5.0) g/dL Amylase (30-110) U/L Lipase (23-300) U/L HCG, Quant mIU/mL Urine Color Light Yellow Urine Appearance Turbid H (Clear) Urine pH 7.5 (5.0-8.0) Ur Specific [place] 1.016 (1.001-1.035) Urine Protein Negative (Negative) Urine Glucose (UA) Negative (Negative) Urine Ketones Negative (Negative) Urine Blood Trace H (Negative) Urine Nitrite Negative (Negative) Urine Bilirubin Negative (Negative) Urine Urobilinogen <2.0 (<2.0) mg/dL Ur Leukocyte Esterase Large H (Negative) Urine RBC 1 (0-5) /hpf Urine WBC 20 H (0-5) /hpf Ur Squamous Epith Cells 4 (0-4) /hpf Amorphous Sediment Many H (None) /hpf - Radiology Data Radiology results: report reviewed, image reviewed Ultrasound of the pelvis with Doppler was obtained. Report was reviewed in its entirety. Impression by Dr. Alvarez shows poorly visualized endometrial stripe. Small to moderate amount of non-simple fluid in the endometrial canal probable blood product. Disposition Clinical Impression: Abdominal pain, Urinary tract infection Disposition: HOME SELF-CARE Condition: Good Instructions (If sedation given, give patient instructions): Urinary Tract Infection in Women (ED), Abdominal Pain (ED) Additional Instructions: Rest. Follow up with your OBGYN as soon as possible. Return to the emergency department for any new, worsening, or concerning symptoms. Prescriptions: Cephalexin [Keflex] 500 mg PO BID #14 cap Is patient prescribed a controlled substance at d/c from ED?: No Referrals: None,Stated [Primary Care Provider] - 1-2 days Time of Disposition: 15:56
[2019-10-16 15:18] LABS: Basophils # (A) 0.1 k/uL (0-0.2); Basophils % (A) 1 %; Eosinophils # (A) 0.2 k/uL (0-0.7); Eosinophils % (A) 2 %; HCT 36.9 % (34.0-46.0); HGB 11.8 gm/dL (11.4-16.0); Lymphocytes # (A) 2.6 k/uL (1.0-4.8); Lymphocytes % (A) 29 %; MCV 81.4 fL (80.0-100.0); Monocytes # (A) 0.4 k/uL (0-1.0); Monocytes % (A) 5 %; Neutrophils # (A) 5.5 k/uL (1.3-7.7); Neutrophils % (A) 62 %; Platelet Count 288 k/uL (150-450); RBC 4.53 m/uL (3.80-5.40); RDW 13.7 % (11.5-15.5); WBC 8.9 k/uL (3.8-10.6)
[2019-10-16 15:23] LABS: Amorphous Sediment,Urine Many /hpf; Appearance,Urine Turbid (Clear); Bilirubin,Urine Negative (Negative); Blood,Urine Trace (Negative); Color,Urine Light Yellow; Glucose,Urine (UA) Negative (Negative); Ketones,Urine Negative (Negative); Leukocyte Esterase,Urine Large (Negative); Nitrite,Urine Negative (Negative); PH, Urine 7.5 (5.0-8.0); Protein,Urine Negative (Negative); RBC,Urine 1 /hpf (0-5); Specific Gravity,Urine 1.016 (1.001-1.035); Squamous Epithelial Cell,Urine 4 /hpf (0-4); Urobilinogen,Urine <2.0 mg/dL (<2.0); WBC,Urine 20 /hpf (0-5)
[2019-10-16 15:27] LABS: ALT 13 U/L (4-34); AST 18 U/L (14-36); African American GFR (CKD) >90 (>60 ml/min/1.73 sqM); Albumin 3.9 g/dL (3.5-5.0); Alkaline Phosphatase 101 U/L (38-126); Amylase 45 U/L (30-110); Anion Gap 7 mmol/L; Blood Urea Nitrogen 12 mg/dL (7-17); Calcium 9.4 mg/dL (8.4-10.2); Carbon Dioxide 23 mmol/L (22-30); Chloride 109 mmol/L (98-107); Glucose 105 mg/dL (74-99); Non-African American GFR(CKD) >90 (>60 ml/min/1.73 sqM); Sodium 139 mmol/L (137-145); Total Bilirubin 0.3 mg/dL (0.2-1.3); Total Protein 6.9 g/dL (6.3-8.2)
[2019-10-16 15:43] LABS: HCG,Quantitative Serum 5.3 mIU/mL
--- NOTE | 2019-10-16 15:44 | US ---
EXAMINATION TYPE: US pelvic complete DATE OF EXAM: 10/16/2019 COMPARISON: NONE CLINICAL HISTORY: recent vag delivery/pelvic pain. Recent vaginal delivery on 10/05/2019. Patient sta omega she gets pelvic discomfort when she goes from sitting to standing. TECHNIQUE: Transabdominal (TA). Transabdominal sonographic images of the pelvis were acquired. Date of LMP: Unknown, EXAM MEASUREMENTS: Uterus: 11.5 x 9.0 x 7.3 cm Endometrial Stripe: Difficult to accurately measure Right Ovary: 3.6 x 2.0 x 2.2 cm Left Ovary: 3.7 x 1.9 x 2.1 cm 1. Uterus: Anteverted Enlarged and heterogenous 2. Endometrium: Fluid visualized with internal echoes. 3. Right Ovary: wnl 4. Left Ovary: wnl Spectral, color and waveform doppler imaging shows good arterial and venous flow within the ovaries ; 5. Bilateral Adnexa: wnl 6. Posterior cul-de-sac: no free fluid Nonsimple fluid seen in the central endometrial canal. Poor visualization of the endometrial stripe w hich is not suspiciously thickened. No suspicious increased central vascularity. Arcuate type morphol ogy incidentally noted. IMPRESSION: Poorly visualized endometrial stripe. Small to moderate amount of nonsimple fluid in the endometrial canal probable blood product.
[2019-10-16] MEDS ORDERED: CEPHALEXIN 500MG STARTER PACK 4 CAP BTL PO STA (15:59)
[2019-10-16 16:23] VITALS: BP 101/52; PULSE 64; RESP 18
== END 2019-10-16 16:23 | disposition home or self-care (01) ==
LOC: EC 14:41
DX: O86.20 Urinary tract infection following delivery, unspecified (principal); Z91.040 Latex allergy status; Z79.899 Other long term (current) drug therapy; Z87.42 Personal history of other diseases of the female genital tract
CPT/HCPCS: 36415; 76856; 80053; 81001; 82150; 83605; 83690; 84702; 85025; 87086; 93975; 96360; 99284

== ENCOUNTER 2019-10-27 01:25 | Emergency (ER) | payer OTHER ==
[2019-10-27 01:34] VITALS: RESP 16; TEMP 98.1
[2019-10-27] MEDS ORDERED: SODIUM CHLORIDE 0.9% 500 ML 500 ML IV STA (01:35)
[2019-10-27] MEDS ORDERED: ONDANSETRON 4 MG/2 ML VIAL IVP STA (01:35)
[2019-10-27 02:01] LABS: Basophils # (A) 0.1 k/uL (0-0.2); Basophils % (A) 1 %; Eosinophils # (A) 0.2 k/uL (0-0.7); Eosinophils % (A) 3 %; HCT 37.5 % (34.0-46.0); HGB 11.7 gm/dL (11.4-16.0); Lymphocytes % (A) 35 %; MCH 25.3 pg (25.0-35.0); MCHC 31.2 g/dL (31.0-37.0); MCV 81.2 fL (80.0-100.0); Mean Platelet Volume 9.2; Monocytes # (A) 0.4 k/uL (0-1.0); Monocytes % (A) 5 %; Neutrophils # (A) 4.7 k/uL (1.3-7.7); Neutrophils % (A) 55 %; Platelet Count 247 k/uL (150-450); RBC 4.62 m/uL (3.80-5.40); RDW 13.7 % (11.5-15.5); WBC 8.6 k/uL (3.8-10.6)
[2019-10-27 02:04] LABS: Appearance,Urine Clear (Clear); Bilirubin,Urine Negative (Negative); Blood,Urine Negative (Negative); Color,Urine Light Yellow; Glucose,Urine (UA) Negative (Negative); Ketones,Urine Negative (Negative); Leukocyte Esterase,Urine Negative (Negative); Nitrite,Urine Negative (Negative); Protein,Urine Negative (Negative); Specific Gravity,Urine 1.016 (1.001-1.035); Urobilinogen,Urine <2.0 mg/dL (<2.0)
[2019-10-27] MEDS ORDERED: ACETAMINOPHEN TAB 325 MG TAB PO STA (02:12)
[2019-10-27 02:15] LABS: ALT 13 U/L (4-34); AST 16 U/L (14-36); African American GFR (CKD) >90 (>60 ml/min/1.73 sqM); Albumin 3.9 g/dL (3.5-5.0); Alkaline Phosphatase 86 U/L (38-126); Amylase 44 U/L (30-110); Anion Gap 7 mmol/L; Blood Urea Nitrogen 17 mg/dL (7-17); Carbon Dioxide 20 mmol/L (22-30); Chloride 110 mmol/L (98-107); Glucose 101 mg/dL (74-99); Non-African American GFR(CKD) >90 (>60 ml/min/1.73 sqM); Potassium 3.8 mmol/L (3.5-5.1); Sodium 137 mmol/L (137-145); Total Bilirubin 0.2 mg/dL (0.2-1.3); Total Protein 6.7 g/dL (6.3-8.2)
--- NOTE | 2019-10-27 02:16 | ED ---
Abdominal Pain HPI - General Chief Complaint: Abdominal Pain Stated Complaint: abd pain Time Seen by Provider: 10/27/19 01:35 Source: patient Mode of arrival: ambulatory Limitations: no limitations - History of Present Illness Initial Comments: This patient is a 28-year-old woman who states she has history of gallbladder attacks, presenting with right upper quadrant pain that she states is similar to previous attacks. The patient states that the pain started between 3 and 4 hours ago. It is in the right upper quadrant. It radiates to her back. The patient states it is mainly an aching pain but does have a sharp characteristic to it. She has not discovered worsening or relieving factors. There is some accompanying nausea. Patient had eaten a chicken nuggets approximately 3 hours prior to onset of pain. No change in urination or bowel movements. The patient does relate that she had given to her child approximately 3 weeks ago. No lower abdominal pain or bleeding. MD Complaint: abdominal pain Onset/Timin -: hour(s) Location: RUQ Radiation: back Migration to: no migration Severity: severe Quality: stabbing, aching Consistency: constant Improves With: nothing Worsens With: nothing Associated Symptoms: nausea - Related Data Home Medications Medication Instructions Recorded Confirmed Ferrous Sulfate [Feosol] 325 mg PO DAILY 05/05/19 05/05/19 [id number] Acid 1 cap PO DAILY 05/05/19 05/05/19 [-U Capsule (formulary)] Previous Rx's Medication Instructions Recorded Cephalexin [Keflex] 500 mg PO BID #14 cap 10/16/19 Allergies Allergy/AdvReac Type Severity Reaction Status Date / Time latex Allergy Rash/Hives Verified 10/27/19 01:34 Review of Systems ROS Statement: Those systems with pertinent positive or pertinent negative responses have been documented in the HPI. ROS Other: All systems not noted in ROS Statement are negative. Constitutional: Denies: fever, chills Respiratory: Denies: cough, dyspnea Cardiovascular: Denies: chest pain, palpitations, orthopnea, edema, syncope Gastrointestinal: Reports: abdominal pain, nausea. Denies: vomiting, diarrhea, constipation, melena, hematochezia Genitourinary: Denies: dysuria, frequency, hematuria, discharge Musculoskeletal: Denies: back pain Skin: Denies: rash Neurological: Denies: headache, weakness, numbness Past Medical History Additional Past Medical History / Comment(s): ENDOMETROSIS, pseudotumor cerbri History of Any Multi-Drug Resistant Organisms: None Reported Past Surgical History: Adenoidectomy, Tonsillectomy Past Anesthesia/Blood Transfusion Reactions: Postoperative Nausea & Vomiting (PONV) Past Psychological History: Anxiety, Depression Smoking Status: Never smoker Past Alcohol Use History: None Reported Past Drug Use History: None Reported - Past Family History Father Family Medical History: Diabetes Mellitus General Exam Limitations: no limitations General appearance: alert, in no apparent distress Head exam: Present: atraumatic, normocephalic Eye exam: Present: normal appearance. Absent: scleral icterus, conjunctival injection ENT exam: Present: normal oropharynx Neck exam: Present: normal inspection Respiratory exam: Present: normal lung sounds bilaterally. Absent: respiratory distress, wheezes, rales, rhonchi, stridor Cardiovascular Exam: Present: regular rate, normal rhythm, normal heart sounds. Absent: systolic murmur, diastolic murmur, rubs, gallop GI/Abdominal exam: Present: soft, tenderness (Mild right upper quadrant tenderness without rebound or guarding), normal bowel sounds. Absent: distended, guarding, rebound, rigid, mass, pulsatile mass, hernia Extremities exam: Present: normal inspection, normal capillary refill. Absent: pedal edema, calf tenderness Back exam: Absent: CVA tenderness (R), CVA tenderness (L) Neurological exam: Present: alert Skin exam: Present: warm, dry, intact, normal color. Absent: rash Course Vital Signs 10/27/19 01:30 Temperature 98.1 F Pulse Rate 80 Respiratory 16 Rate Blood Pressure 114/69 O2 Sat by Pulse 100 Oximetry Medical Decision Making - Lab Data Result diagrams: 10/27/19 01:53 10/27/19 01:53 Lab Results 10/27/19 10/27/19 10/27/19 Range/Units 01:36 01:53 01:53 WBC 8.6 (3.8-10.6) k/uL RBC 4.62 (3.80-5.40) m/uL Hgb 11.7 (11.4-16.0) gm/dL Hct 37.5 (34.0-46.0) % MCV 81.2 (80.0-100.0) fL MCH 25.3 (25.0-35.0) pg MCHC 31.2 (31.0-37.0) g/dL RDW 13.7 (11.5-15.5) % Plt Count 247 (150-450) k/uL Neutrophils % 55 % Lymphocytes % 35 % Monocytes % 5 % Eosinophils % 3 % Basophils % 1 % Neutrophils # 4.7 (1.3-7.7) k/uL Lymphocytes # 3.0 (1.0-4.8) k/uL Monocytes # 0.4 (0-1.0) k/uL Eosinophils # 0.2 (0-0.7) k/uL Basophils # 0.1 (0-0.2) k/uL Sodium (137-145) mmol/L Potassium (3.5-5.1) mmol/L Chloride (98-107) mmol/L Carbon Dioxide (22-30) mmol/L Anion Gap mmol/L BUN (7-17) mg/dL Creatinine (0.52-1.04) mg/dL Est GFR (CKD-EPI)AfAm (>60 ml/min/1.73 sqM) Est GFR (CKD-EPI)NonAf (>60 ml/min/1.73 sqM) Glucose (74-99) mg/dL Calcium (8.4-10.2) mg/dL Total Bilirubin (0.2-1.3) mg/dL AST (14-36) U/L ALT (4-34) U/L Alkaline Phosphatase (38-126) U/L Total Protein (6.3-8.2) g/dL Albumin (3.5-5.0) g/dL Amylase (30-110) U/L Lipase (23-300) U/L Urine Color Light Yellow Urine Appearance Clear (Clear) Urine pH 5.0 (5.0-8.0) Ur Specific [place] 1.016 (1.001-1.035) Urine Protein Negative (Negative) Urine Glucose (UA) Negative (Negative) Urine Ketones Negative (Negative) Urine Blood Negative (Negative) Urine Nitrite Negative (Negative) Urine Bilirubin Negative (Negative) Urine Urobilinogen <2.0 (<2.0) mg/dL Ur Leukocyte Esterase Negative (Negative) Urine HCG, Qual Not Detected (Not Detectd) 10/27/19 Range/Units 01:53 WBC (3.8-10.6) k/uL RBC (3.80-5.40) m/uL Hgb (11.4-16.0) gm/dL Hct (34.0-46.0) % MCV (80.0-100.0) fL MCH (25.0-35.0) pg MCHC (31.0-37.0) g/dL RDW (11.5-15.5) % Plt Count (150-450) k/uL Neutrophils % % Lymphocytes % % Monocytes % % Eosinophils % % Basophils % % Neutrophils # (1.3-7.7) k/uL Lymphocytes # (1.0-4.8) k/uL Monocytes # (0-1.0) k/uL Eosinophils # (0-0.7) k/uL Basophils # (0-0.2) k/uL Sodium 137 (137-145) mmol/L Potassium 3.8 (3.5-5.1) mmol/L Chloride 110 H (98-107) mmol/L Carbon Dioxide 20 L (22-30) mmol/L Anion Gap 7 mmol/L BUN 17 (7-17) mg/dL Creatinine 0.87 (0.52-1.04) mg/dL Est GFR (CKD-EPI)AfAm >90 (>60 ml/min/1.73 sqM) Est GFR (CKD-EPI)NonAf >90 (>60 ml/min/1.73 sqM) Glucose 101 H (74-99) mg/dL Calcium 9.0 (8.4-10.2) mg/dL Total Bilirubin 0.2 (0.2-1.3) mg/dL AST 16 (14-36) U/L ALT 13 (4-34) U/L Alkaline Phosphatase 86 (38-126) U/L Total Protein 6.7 (6.3-8.2) g/dL Albumin 3.9 (3.5-5.0) g/dL Amylase 44 (30-110) U/L Lipase 81 (23-300) U/L Urine Color Urine Appearance (Clear) Urine pH (5.0-8.0) Ur Specific [place] (1.001-1.035) Urine Protein (Negative) Urine Glucose (UA) (Negative) Urine Ketones (Negative) Urine Blood (Negative) Urine Nitrite (Negative) Urine Bilirubin (Negative) Urine Urobilinogen (<2.0) mg/dL Ur Leukocyte Esterase (Negative) Urine HCG, Qual (Not Detectd) Disposition Clinical Impression: Biliary colic Disposition: HOME SELF-CARE Condition: Good Instructions (If sedation given, give patient instructions): Abdominal Pain (ED), Biliary Colic (ED) Is patient prescribed a controlled substance at d/c from ED?: No Referrals: None,Stated [Primary Care Provider] - 1-2 days Peewee Nice MD [Medical Doctor] - 1-2 days
[2019-10-27 03:24] VITALS: BP 131/88; PULSE 67
== END 2019-10-27 03:27 | disposition home or self-care (01) ==
LOC: EC 01:25
DX: K80.50 Calculus of bile duct without cholangitis or cholecystitis without obstruction (principal); Z79.899 Other long term (current) drug therapy; Z91.040 Latex allergy status
CPT/HCPCS: 36415; 80053; 81003; 81025; 82150; 83690; 85025; 99284

== ENCOUNTER 2019-12-10 19:35 | Emergency (ER) | payer OTHER ==
[2019-12-10] MEDS ORDERED: PANTOPRAZOLE 40 MG/10 ML VIAL IVP STA (19:55)
[2019-12-10] MEDS ORDERED: ONDANSETRON 4 MG/2 ML VIAL IVP STA (19:55)
[2019-12-10] MEDS ORDERED: SODIUM CHLORIDE 0.9% 1,000 ML IV STA (19:55)
[2019-12-10] MEDS ORDERED: KETOROLAC 15 MG/ML 1 ML VIAL IVP STA (19:56)
--- NOTE | 2019-12-10 20:15 | ED ---
Abdominal Pain HPI - General Source: patient Mode of arrival: ambulatory Limitations: no limitations <Hussain Yun - Last Filed: 12/10/19 21:32> <Eun Geller - Last Filed: 12/11/19 13:12> - General Chief Complaint: Abdominal Pain Stated Complaint: Abd Pain - Gallbladder Time Seen by Provider: 12/10/19 19:51 - History of Present Illness Initial Comments: Patient is a 28-year-old female presenting to emergency Department with a chief complaint of gallbladder pain. Patient states she was recently in [place] and ate a meal that was very fatty. Patient reports she went to the emergency department there and was diagnosed with gallstones. Patient states she was advised to return if her pain worsen. Patient reports she returned back to [place] and continues to have pain. States she's not been able to keep any food down. States she has right upper quadrant abdominal pain with any food or drinks. States that all the women in her family have had cholecystectomy. Denies urinary or vaginal symptoms. (Hussain Yun) - Related Data Home Medications Medication Instructions Recorded Confirmed Ferrous Sulfate [Feosol] 325 mg PO DAILY 05/05/19 05/05/19 Pcw-Fjxq-Cwbzk Acid 1 cap PO DAILY 05/05/19 05/05/19 [-U Capsule (formulary)] Previous Rx's Medication Instructions Recorded Cephalexin [Keflex] 500 mg PO BID #14 cap 10/16/19 Ondansetron Odt [Zofran Odt] 4 mg PO Q8HR PRN #20 tab 12/10/19 Allergies Allergy/AdvReac Type Severity Reaction Status Date / Time latex Allergy Rash/Hives Verified 12/10/19 19:46 Review of Systems ROS Other: All systems not noted in ROS Statement are negative. <Hussain Yun - Last Filed: 12/10/19 21:32> ROS Other: All systems not noted in ROS Statement are negative. <Eun Geller - Last Filed: 12/11/19 13:12> ROS Statement: Those systems with pertinent positive or pertinent negative responses have been documented in the HPI. Past Medical History Past Medical History: No Reported History Additional Past Medical History / Comment(s): ENDOMETROSIS, pseudotumor cerbri, History of Any Multi-Drug Resistant Organisms: None Reported Past Surgical History: Adenoidectomy, Tonsillectomy Past Anesthesia/Blood Transfusion Reactions: Postoperative Nausea & Vomiting (PONV) Past Psychological History: Anxiety, Depression Smoking Status: Never smoker Past Alcohol Use History: None Reported Past Drug Use History: None Reported - Past Family History Father Family Medical History: Diabetes Mellitus <Hussain Yun Last Filed: 12/10/19 21:32> General Exam Limitations: no limitations General appearance: alert, in no apparent distress, obese Head exam: Present: atraumatic, normocephalic, normal inspection Eye exam: Present: normal appearance, PERRL, EOMI Pupils: Present: normal accommodation ENT exam: Present: normal exam, normal oropharynx, mucous membranes moist, TM's normal bilaterally, normal external ear exam Neck exam: Present: normal inspection, full ROM. Absent: tenderness Respiratory exam: Present: normal lung sounds bilaterally. Absent: respiratory distress, wheezes, rales Cardiovascular Exam: Present: regular rate, normal rhythm, normal heart sounds GI/Abdominal exam: Present: soft, tenderness (Right upper quadrant abdominal pain. Negative Barba's.). Absent: distended, guarding, rebound, rigid Extremities exam: Present: normal inspection, full ROM, normal capillary refill. Absent: tenderness Back exam: Present: normal inspection, full ROM. Absent: tenderness, CVA tenderness (R), CVA tenderness (L) Neurological exam: Present: alert, oriented X3, normal gait Psychiatric exam: Present: normal affect, normal mood Skin exam: Present: warm, dry, intact, normal color <Hussain Yun Last Filed: 12/10/19 21:32> Course Vital Signs 12/10/19 12/10/19 19:43 21:43 Temperature 98.5 F 98.0 F Pulse Rate 89 78 Respiratory 18 16 Rate Blood Pressure 124/73 112/70 O2 Sat by Pulse 99 99 Oximetry Medical Decision Making - Lab Data Result diagrams: 12/10/19 20:53 12/10/19 20:53 <Hussain Yun - Last Filed: 12/10/19 21:32> - Lab Data Result diagrams: 12/10/19 20:53 12/10/19 20:53 <Eun Geller - Last Filed: 12/11/19 13:12> - Medical Decision Making Patient is a 28-year-old female presenting to emergency Department with chief complaint of gallstone pain. On exam she does have right upper quadrant tenderness but negative Barba. No fevers or chills but she does have nausea. But upper quadrant ultrasound reveals multiple gallstones but no signs of choledocholithiasis. Her vital stable. CBC CMP is unremarkable. UA does reveal +1 ketones which I suspect is secondary to her not being able to tolerate any orals. Patient was given IV fluids and analgesia and antiemetics. Reevaluation patient reports improving symptoms. Advised the patient to follow up with a general surgeon. She was otherwise advised to alternate between Ty lenol and Motrin for pain control. Strict return parameters were thoroughly discussed with patient was upsetting agreeable. She was also advised to avoid eating any fatty foods. Case discussed with physician. (Hussain Yun) I was available for consultation in the emergency department. The history and physical exam were done by the midlevel provider. I was consulted for this patients care. I reviewed the case with the midlevel provider and based on their presentation of the patient, I agree with the assessment, medical decision making and plan of care as documented. Chart was dictated using [employer] dictation software. Attempts were made to correct any dictation errors however some typographical errors may persist. Patient was seen during a national state of emergency due to the Covid-19 pandemic. (Eun Geller) - Lab Data Lab Results 12/10/19 12/10/19 12/10/19 Range/Units 20:53 20:53 20:53 WBC 9.8 (3.8-10.6) k/uL RBC 4.69 (3.80-5.40) m/uL Hgb 11.7 (11.4-16.0) gm/dL Hct 36.4 (34.0-46.0) % MCV 77.6 L (80.0-100.0) fL MCH 25.0 (25.0-35.0) pg MCHC 32.1 (31.0-37.0) g/dL RDW 14.0 (11.5-15.5) % Plt Count 249 (150-450) k/uL Neutrophils % 60 % Lymphocytes % 31 % Monocytes % 4 % Eosinophils % 3 % Basophils % 1 % Neutrophils # 5.9 (1.3-7.7) k/uL Lymphocytes # 3.1 (1.0-4.8) k/uL Monocytes # 0.4 (0-1.0) k/uL Eosinophils # 0.3 (0-0.7) k/uL Basophils # 0.1 (0-0.2) k/uL Sodium 140 (137-145) mmol/L Potassium 4.0 (3.5-5.1) mmol/L Chloride 106 (98-107) mmol/L Carbon Dioxide 25 (22-30) mmol/L Anion Gap 9 mmol/L BUN 13 (7-17) mg/dL Creatinine 0.59 (0.52-1.04) mg/dL Est GFR (CKD-EPI)AfAm >90 (>60 ml/min/1.73 sqM) Est GFR (CKD-EPI)NonAf >90 (>60 ml/min/1.73 sqM) Glucose 86 (74-99) mg/dL Calcium 9.6 (8.4-10.2) mg/dL Total Bilirubin 0.5 (0.2-1.3) mg/dL AST 19 (14-36) U/L ALT 14 (4-34) U/L Alkaline Phosphatase 79 (38-126) U/L Total Protein 7.2 (6.3-8.2) g/dL Albumin 4.4 (3.5-5.0) g/dL Lipase 28 (23-300) U/L Urine Color Yellow Urine Appearance Clear (Clear) Urine pH 5.0 (5.0-8.0) Ur Specific [place] 1.031 (1.001-1.035) Urine Protein Trace H (Negative) Urine Glucose (UA) Negative (Negative) Urine Ketones 1+ H (Negative) Urine Blood Negative (Negative) Urine Nitrite Negative (Negative) Urine Bilirubin Negative (Negative) Urine Urobilinogen <2.0 (<2.0) mg/dL Ur Leukocyte Esterase Small H (Negative) Urine RBC 1 (0-5) /hpf Urine WBC 7 H (0-5) /hpf Ur Squamous Epith Cells 3 (0-4) /hpf Urine Bacteria Rare H (None) /hpf Urine Mucus Few H (None) /hpf Urine HCG, Qual (Not Detectd) 12/10/19 Range/Units 20:53 WBC (3.8-10.6) k/uL RBC (3.80-5.40) m/uL Hgb (11.4-16.0) gm/dL Hct (34.0-46.0) % MCV (80.0-100.0) fL MCH (25.0-35.0) pg MCHC (31.0-37.0) g/dL RDW (11.5-15.5) % Plt Count (150-450) k/uL Neutrophils % % Lymphocytes % % Monocytes % % Eosinophils % % Basophils % % Neutrophils # (1.3-7.7) k/uL Lymphocytes # (1.0-4.8) k/uL Monocytes # (0-1.0) k/uL Eosinophils # (0-0.7) k/uL Basophils # (0-0.2) k/uL Sodium (137-145) mmol/L Potassium (3.5-5.1) mmol/L Chloride (98-107) mmol/L Carbon Dioxide (22-30) mmol/L Anion Gap mmol/L BUN (7-17) mg/dL Creatinine (0.52-1.04) mg/dL Est GFR (CKD-EPI)AfAm (>60 ml/min/1.73 sqM) Est GFR (CKD-EPI)NonAf (>60 ml/min/1.73 sqM) Glucose (74-99) mg/dL Calcium (8.4-10.2) mg/dL Total Bilirubin (0.2-1.3) mg/dL AST (14-36) U/L ALT (4-34) U/L Alkaline Phosphatase (38-126) U/L Total Protein (6.3-8.2) g/dL Albumin (3.5-5.0) g/dL Lipase (23-300) U/L Urine Color Urine Appearance (Clear) Urine pH (5.0-8.0) Ur Specific [place] (1.001-1.035) Urine Protein (Negative) Urine Glucose (UA) (Negative) Urine Ketones (Negative) Urine Blood (Negative) Urine Nitrite (Negative) Urine Bilirubin (Negative) Urine Urobilinogen (<2.0) mg/dL Ur Leukocyte Esterase (Negative) Urine RBC (0-5) /hpf Urine WBC (0-5) /hpf Ur Squamous Epith Cells (0-4) /hpf Urine Bacteria (None) /hpf Urine Mucus (None) /hpf Urine HCG, Qual Not Detected (Not Detectd) Disposition Is patient prescribed a controlled substance at d/c from ED?: No Time of Disposition: 21:18 <JamaHussain - Last Filed: 12/10/19 21:32> <EricksongabrielEun Tayo - Last Filed: 12/11/19 13:12> Clinical Impression: Cholelithiasis, Abdominal pain Disposition: HOME SELF-CARE Condition: Stable Instructions (If sedation given, give patient instructions): Cholecystitis (ED), Gallstones (ED), Low Fat Diet (ED) Additional Instructions: Follow-up with a general surgeon. Avoid eating fatty foods. Return to emerge ncy department if symptoms worsen. Prescriptions: Ondansetron Odt [Zofran Odt] 4 mg PO Q8HR PRN #20 tab PRN Reason: Nausea Referrals: None,Stated [Primary Care Provider] - 1-2 days Silvano Resendiz DO [Doctor of Osteopathic Medicine] - 1-2 days
--- NOTE | 2019-12-10 20:54 | US ---
EXAMINATION TYPE: US gallbladder DATE OF EXAM: 12/10/2019 COMPARISON: NONE CLINICAL HISTORY: ruq abd pain, "gallbladder problems". EXAM MEASUREMENTS: Liver Length: 14.8 cm Gallbladder Wall: 0.3 cm CBD: 0.3 cm Right Kidney: 12.7 x 4.0 x 5.0 cm Patient of large body habitus, with extensive overlying bowel gas, technically difficult, limited johann dy. Pancreas: Obscured by bowel gas Liver: wnl, as seen Gallbladder: stones, sludge ball, no wall thickening Evidence for sonographic Barba's sign: no CBD: wnl Right Kidney: Inferior pole obscured by overlying bowel gas, measures large IMPRESSION: There are gallstones and echogenic bile. No dilated ducts. No focal liver defect.
[2019-12-10 21:02] LABS: Basophils # (A) 0.1 k/uL (0-0.2); Basophils % (A) 1 %; Eosinophils # (A) 0.3 k/uL (0-0.7); Eosinophils % (A) 3 %; HCT 36.4 % (34.0-46.0); HGB 11.7 gm/dL (11.4-16.0); Lymphocytes # (A) 3.1 k/uL (1.0-4.8); Lymphocytes % (A) 31 %; MCHC 32.1 g/dL (31.0-37.0); MCV 77.6 fL (80.0-100.0); Mean Platelet Volume 8.1; Monocytes # (A) 0.4 k/uL (0-1.0); Monocytes % (A) 4 %; Neutrophils # (A) 5.9 k/uL (1.3-7.7); Neutrophils % (A) 60 %; Platelet Count 249 k/uL (150-450); RBC 4.69 m/uL (3.80-5.40); WBC 9.8 k/uL (3.8-10.6)
[2019-12-10 21:07] LABS: Appearance,Urine Clear (Clear); Bacteria,Urine Rare /hpf; Bilirubin,Urine Negative (Negative); Blood,Urine Negative (Negative); Color,Urine Yellow; Glucose,Urine (UA) Negative (Negative); Ketones,Urine 1+ (Negative); Leukocyte Esterase,Urine Small (Negative); Mucus,Urine Few /hpf; Nitrite,Urine Negative (Negative); Protein,Urine Trace (Negative); RBC,Urine 1 /hpf (0-5); Specific Gravity,Urine 1.031 (1.001-1.035); Squamous Epithelial Cell,Urine 3 /hpf (0-4); Urobilinogen,Urine <2.0 mg/dL (<2.0); WBC,Urine 7 /hpf (0-5)
[2019-12-10 21:11] LABS: ALT 14 U/L (4-34); AST 19 U/L (14-36); African American GFR (CKD) >90 (>60 ml/min/1.73 sqM); Albumin 4.4 g/dL (3.5-5.0); Alkaline Phosphatase 79 U/L (38-126); Anion Gap 9 mmol/L; Blood Urea Nitrogen 13 mg/dL (7-17); Calcium 9.6 mg/dL (8.4-10.2); Carbon Dioxide 25 mmol/L (22-30); Chloride 106 mmol/L (98-107); Glucose 86 mg/dL (74-99); Non-African American GFR(CKD) >90 (>60 ml/min/1.73 sqM); Sodium 140 mmol/L (137-145); Total Bilirubin 0.5 mg/dL (0.2-1.3); Total Protein 7.2 g/dL (6.3-8.2)
[2019-12-10 21:44] VITALS: BP 112/70; PULSE 78; RESP 16; TEMP 98
== END 2019-12-10 21:43 | disposition home or self-care (01) ==
LOC: EC 19:35
DX: K80.20 Calculus of gallbladder without cholecystitis without obstruction (principal); Z79.899 Other long term (current) drug therapy; Z91.040 Latex allergy status
CPT/HCPCS: 36415; 80053; 83690; 85025; 81001; 81025; 76705; 99284; 96374; 96375 ×2; 96361; J2405; C9113

== ENCOUNTER → 2021-03-03 | Outpatient (CLI) | payer OTHER ==
[2021-03-03 12:26] LABS: Glucose 2 Hour 143 mg/dL
== END | disposition home or self-care (01) ==
LOC: LABWHC1 08:23
PROVIDERS: ATTEND Obstetrics & Gynecology
DX: O99.810 Abnormal glucose complicating pregnancy (principal); Z3A.00 Weeks of gestation of pregnancy not specified
CPT/HCPCS: 36415; 82947; 82950

== ENCOUNTER 2022-11-21 17:03 | Emergency (ER) | payer OTHER ==
[2022-11-21 17:39] VITALS: BP 132/87; PULSE 74; RESP 20; TEMP 98.1
--- NOTE | 2022-11-21 18:10 | ED ---
General Adult HPI - General Source: patient Mode of arrival: ambulatory Limitations: no limitations <Maksim Marino - Last Filed: 11/21/22 21:13> <Eun Geller - Last Filed: 11/23/22 09:25> - General Chief complaint: Abdominal Pain Stated complaint: Abd pain Time Seen by Provider: 11/21/22 17:49 - History of Present Illness Initial comments: Dictation was produced using [employer] dictation software. please excuse any grammatical, word or spelling errors. Chief Complaint: 31-year-old female presents with chronic abdominal pain History of Present Illness: Patient is a 31-year-old female she has no significant comorbidities states that she is here for chronic abdominal pain. States that the pain is in her left upper quadrant comes on sporadically. Is not triggered by food. She states she is scared to eat she is not sure if the skin is dry and pale been ongoing for 1 month. Saw primary care doctor regarding this. She was told to take probiotics and and given behavioral changes. States that her symptoms do not improve. Went to the urgent care and urgent cares states that they did not have anything to offer that she should go to the accident. The ROS documented in this emergency department record has been reviewed and confirmed by me. Those systems with pertinent positive or negative responses have been documented in the HPI. All other systems are other negative and/or noncontributory. (Maksim Marino) - Related Data Home Medications Medication Instructions Recorded Confirmed Ferrous Sulfate [Feosol] 325 mg PO DAILY 05/05/19 05/05/19 Ztq-Yuhh-Thzsk Acid 1 cap PO DAILY 05/05/19 05/05/19 [-U Capsule (formulary)] Previous Rx's Medication Instructions Recorded Cephalexin [Keflex] 500 mg PO BID #14 cap 10/16/19 Ondansetron Odt [Zofran Odt] 4 mg PO Q8HR PRN #20 tab 12/10/19 Famotidine [Pepcid] 20 mg PO BID #60 tablet 11/21/22 Sucralfate [Carafate] 1 gm PO ACHS #56 tablet 11/21/22 Allergies Allergy/AdvReac Type Severity Reaction Status Date / Time latex Allergy Rash/Hives Verified 11/21/22 17:39 Review of Systems ROS Other: All systems not noted in ROS Statement are negative. <Maksim Marino - Last Filed: 11/21/22 21:13> ROS Other: All systems not noted in ROS Statement are negative. <DuyenEun Tayo - Last Filed: 11/23/22 09:25> ROS Statement: Those systems with pertinent positive or pertinent negative responses have been documented in the HPI. Past Medical History Past Medical History: No Reported History Additional Past Medical History / Comment(s): ENDOMETROSIS, pseudotumor cerbri, History of Any Multi-Drug Resistant Organisms: None Reported Past Surgical History: Adenoidectomy, Cholecystectomy, Tonsillectomy Additional Past Surgical History / Comment(s): inocente salpingectomy Past Anesthesia/Blood Transfusion Reactions: Postoperative Nausea & Vomiting (PONV) Past Psychological History: Anxiety, Depression Smoking Status: Never smoker Past Alcohol Use History: None Reported Past Drug Use History: None Reported - Past Family History Father Family Medical History: Diabetes Mellitus <Maksim Marino - Last Filed: 11/21/22 21:13> General Exam Limitations: no limitations <Maksim Marino - Last Filed: 11/21/22 21:13> - General Exam Comments Initial Comments: PHYSICAL EXAM: General Impression: Alert and oriented x3, not in acute distress HEENT: Normocephalic atraumatic, extra-ocular movements intact, pupils equal and reactive to light bilaterally, mucous membranes moist. Cardiovascular: Heart regular rate and rhythm Chest: Able to complete full sentences, no retractions, no tachypnea Abdomen: abdomen soft, mild epigastric and left upper quadrant tenderness, non- distended, no organomegaly Musculoskeletal: Pulses present and equal in all extremities, no peripheral edema Motor: no focal deficits noted Neurological: CN II-XII grossly intact, no focal motor or sensory deficits noted Skin: Intact with no visualized rashes Psych: Normal affect and mood (Maksim Marino) Course Vital Signs 11/21/22 17:36 Temperature 98.1 F Pulse Rate 74 Respiratory 20 Rate Blood Pressure 132/87 O2 Sat by Pulse 100 Oximetry Medical Decision Making - Lab Data Result diagrams: 11/21/22 18:53 11/21/22 18:53 <Maksim Marino - Last Filed: 11/21/22 21:13> - Lab Data Result diagrams: 11/21/22 18:53 11/21/22 18:53 <Eun Geller A - Last Filed: 11/23/22 09:25> - Medical Decision Making Was pt. sent in by a medical professional or institution (, [facility], [facility], urgent care, hospital, or [facility]...) When possible be specific @ -No Did you speak to anyone other than the patient for history (EMS, parent, family, police, friend...)? What history was obtained from this source @ -No Did you review nursing and triage notes (agree or disagree)? Why? @ -I reviewed and agree with nursing and triage notes Were old charts reviewed (outside hosp., previous admission, EMS record, old EKG, old radiological studies, urgent care reports/EKG's, [facility] records)? Report findings @ -No old charts were reviewed Differential Diagnosis (chest pain, altered mental status, abdominal pain women, abdominal pain men, vaginal bleeding, musculoskeletal, weakness, fever, dyspnea, syncope, headache, dizziness, GI bleed, back pain, seizure, CVA, palpatations, mental health)? @ -Differential Abdominal Pain Women: Appendicitis, Cholecystitis, diverticulosis, ischemic bowel, pancreatitis, hepatitis, UTI, gastroenteritis, AAA, incarcerated hernia, bowel obstruction, constipation, inflammatory bowel, hepatitis, peptic ulcer disease, splenic infarction, perforated viscus, vulvitis, ovarian torsion, PID, kidney stone, placenta abruption, this is not meant to be an all-inclusive list EKG interpreted by me (3pts min.). @ -None done X-rays interpreted by me (1pt min.). @ -None done CT interpreted by me (1pt min.). @ -pending CT abdominal pelvis U/S interpreted by me (1pt. min.). @ -None done What testing was considered but not performed or refused? (CT, X-rays, U/S, labs)? Why? @ -None What meds were considered but not given or refused? Why? @ -None Did you discuss the management of the patient with other professionals (professionals i.e. , [facility], [facility]LLOWER, lab, RT, psych nurse, professor of social work, delivery director, teacher, inshore undersea warfare officer, director case management)? Give summary @ -No Was smoking cessation discussed for >3mins.? @ -No Was critical care preformed (if so, how long)? @ -No Were there social determinants of health that impacted care today? How? (Homelessness, low income, unemployed, alcoholism, drug addiction, transportation, low edu. Level, literacy, decrease access to med. care, detention, rehab)? @ -No Was there de-escalation of care discussed even if they declined (Discuss DNR or withdrawal of care, Hospice)? DNR status @ -No What co-morbidities impacted this encounter? (DM, HTN, Smoking, COPD, CAD, Cancer, CVA, ARF, Chemo, Hep., AIDS, mental health diagnosis, sleep apnea, morbid obesity)? @ -None Was patient admitted / discharged? Hospital course, mention meds given and route, prescriptions, significant lab abnormalities, going to OR and other pertinent info. @ -31-year-old female presents emergency Department with chronic abdominal pain. Vital signs upon arrival are within acceptable limits. Laboratory evaluation unremarkable. CBC and metabolic panel and abdominal labs are within acceptable limits. Pending CT study. Discussed and out to Dr. Geller for follow-up of pending CT abdomen and pelvis Undiagnosed new problem with uncertain prognosis? @ -No Drug Therapy requiring intensive monitoring for toxicity (Heparin, Nitro, Insulin, Cardizem)? @ -No Were any procedures done? @ -No Diagnosis/symptom? Acute, or Chronic, or Acute on Chronic? Uncomplicated (without systemic symptoms) or Complicated (systemic symptoms)? @ -Abdominal pain (Maksim Marino) Patient was signed out to me pending computed tomography scan. It does not demonstrate any acute findings. I do feel that the patient requires EGD. She will be placed on Pepcid. He is to continue taking omeprazole. Follow up with the surgeons and GI doctor for possible scope. You bland diet and return for any new or worsening symptoms. Patient was agreeable to this plan and she was discharged in stable condition (Eun Geller) - Lab Data Lab Results 11/21/22 11/21/22 Range/Units 18:53 18:53 WBC 9.8 (3.8-10.6) k/uL RBC 4.69 (3.80-5.40) m/uL Hgb 12.1 (11.4-16.0) gm/dL Hct 38.1 (34.0-46.0) % MCV 81.2 (80.0-100.0) fL MCH 25.7 (25.0-35.0) pg MCHC 31.7 (31.0-37.0) g/dL RDW 13.6 (11.5-15.5) % Plt Count 227 (150-450) k/uL MPV 8.9 Neutrophils % 64 % Lymphocytes % 27 % Monocytes % 5 % Eosinophils % 2 % Basophils % 1 % Neutrophils # 6.3 (1.3-7.7) k/uL Lymphocytes # 2.6 (1.0-4.8) k/uL Monocytes # 0.5 (0-1.0) k/uL Eosinophils # 0.2 (0-0.7) k/uL Basophils # 0.1 (0-0.2) k/uL Sodium 136 L (137-145) mmol/L Potassium 4.1 (3.5-5.1) mmol/L Chloride 103 (98-107) mmol/L Carbon Dioxide 24 (22-30) mmol/L Anion Gap 9 mmol/L BUN 11 (7-17) mg/dL Creatinine 0.59 (0.52-1.04) mg/dL Est GFR (CKD-EPI)AfAm >90 (>60 ml/min/1.73 sqM) Est GFR (CKD-EPI)NonAf >90 (>60 ml/min/1.73 sqM) Glucose 84 (74-99) mg/dL Calcium 9.5 (8.4-10.2) mg/dL Total Bilirubin 0.5 (0.2-1.3) mg/dL AST 19 (14-36) U/L ALT 18 (4-34) U/L Alkaline Phosphatase 79 (38-126) U/L Total Protein 7.5 (6.3-8.2) g/dL Albumin 4.3 (3.5-5.0) g/dL Lipase 42 (23-300) U/L Disposition <Maksim Marino - Last Filed: 11/21/22 21:13> Is patient prescribed a controlled substance at d/c from ED?: No Time of Disposition: 22:09 <Eun Geller - Last Filed: 11/23/22 09:25> Clinical Impression: Abdominal pain Disposition: HOME SELF-CARE Condition: Stable Instructions (If sedation given, give patient instructions): Abdominal Pain (ED) Additional Instructions: I recommend you have an EGD and colonoscopy. Return for any new or worsening symptoms. Prescriptions: Sucralfate [Carafate] 1 gm PO ACHS #56 tablet Famotidine [Pepcid] 20 mg PO BID #60 tablet Referrals: Shaylee Hernandez MD [STAFF PHYSICIAN] - 1-2 days Jenna Jin NPC [Nurse Practitioner] - 1-2 days Edward Anderson MD [STAFF PHYSICIAN] - 1-2 days
[2022-11-21 19:11] LABS: Basophils # (A) 0.1 k/uL (0-0.2); Basophils % (A) 1 %; Eosinophils # (A) 0.2 k/uL (0-0.7); Eosinophils % (A) 2 %; HCT 38.1 % (34.0-46.0); HGB 12.1 gm/dL (11.4-16.0); Lymphocytes # (A) 2.6 k/uL (1.0-4.8); Lymphocytes % (A) 27 %; MCH 25.7 pg (25.0-35.0); MCHC 31.7 g/dL (31.0-37.0); MCV 81.2 fL (80.0-100.0); Mean Platelet Volume 8.9; Monocytes # (A) 0.5 k/uL (0-1.0); Monocytes % (A) 5 %; Neutrophils # (A) 6.3 k/uL (1.3-7.7); Neutrophils % (A) 64 %; Platelet Count 227 k/uL (150-450); RBC 4.69 m/uL (3.80-5.40); RDW 13.6 % (11.5-15.5); WBC 9.8 k/uL (3.8-10.6)
[2022-11-21 19:19] LABS: ALT 18 U/L (4-34); AST 19 U/L (14-36); African American GFR (CKD) >90 (>60 ml/min/1.73 sqM); Albumin 4.3 g/dL (3.5-5.0); Alkaline Phosphatase 79 U/L (38-126); Anion Gap 9 mmol/L; Blood Urea Nitrogen 11 mg/dL (7-17); Calcium 9.5 mg/dL (8.4-10.2); Carbon Dioxide 24 mmol/L (22-30); Chloride 103 mmol/L (98-107); Glucose 84 mg/dL (74-99); Lipase 42 U/L (23-300); Non-African American GFR(CKD) >90 (>60 ml/min/1.73 sqM); Potassium 4.1 mmol/L (3.5-5.1); Sodium 136 mmol/L (137-145); Total Bilirubin 0.5 mg/dL (0.2-1.3); Total Protein 7.5 g/dL (6.3-8.2)
--- NOTE | 2022-11-21 21:44 | CT ---
EXAMINATION TYPE: CT abdomen pelvis w con DATE OF EXAM: 11/21/2022 COMPARISON: None INDICATION: LUQ pain DLP: 1239.5 mGycm, Automated exposure control for dose reduction was used. CONTRAST: 100 mL of Isovue 300. Study performed without Oral Contrast TECHNIQUE: Axial images were obtained from above the diaphragm to the pubic rami in the axial plane a t 5 mm thick sections. Reconstructed images are reviewed on the computer in the coronal plane. FINDINGS: Limited CT sections are obtained the lung bases. The lung bases are clear. CT ABDOMEN: Liver: Normal Spleen: Normal Pancreas: Normal Adrenal glands: The adrenal glands are normal. Gallbladder: Surgically absent Kidneys: No masses are evident. No hydronephrosis is present. No cysts are present. Delayed images were obtained through the kidneys, which remain unremarkable. Aorta: Normal Inferior vena cava: Normal. CT PELVIS: Loops of bowel within the abdomen and pelvis are normal. Few scattered diverticuli within the sigmoid colon. This study is without oral contrast Limited bowel evaluation. Appendix: Normal as visualized. Urinary bladder: Normal. Genitourinary structures: Uterus is normal. Adnexa are normal. Right ovarian cyst with a transverse d imension of 1.3 cm may be present. Osseous structures: No suspicious lytic or sclerotic lesions. IMPRESSION: 1. Diverticulosis without acute diverticulitis sigmoid colon.
== END 2022-11-21 23:01 | disposition home or self-care (01) ==
LOC: EC 17:03
DX: G89.29 Other chronic pain (principal); R10.12 Left upper quadrant pain; R10.13 Epigastric pain; Z90.49 Acquired absence of other specified parts of digestive tract; Z91.040 Latex allergy status
CPT/HCPCS: 36415; 80053; 83690; 85025; 74177; 99284; Q9967

== ENCOUNTER → 2023-08-24 | Outpatient (CLI) | payer OTHER ==
--- NOTE | 2023-08-24 10:55 | US ---
EXAMINATION TYPE: US pelvic complete DATE OF EXAM: 08/24/2023 COMPARISON: CT 11/21/2022, US 2019 CLINICAL INDICATION: Female, 32 years old with history of N92.1 EXCESSIVE AND FREQUENT MENSTRUATION W ITH IRR; Patient states she has a lot of clots with her period. Bilateral fallopian tubes removed in 2021. Hx 1 miscarriage. . TECHNIQUE: Transabdominal (TA). Transabdominal sonographic images of the pelvis were acquired. Date of LMP: Unknown per patient. EXAM MEASUREMENTS: Uterus: 10.0 x 6.7 x 4.4 cm Endometrial Stripe: 0.29 cm Right Ovary: 3.6 x 2.9 x 1.9 cm Left Ovary: 5.0 x 2.5 x 2.7 cm 1. Uterus: Anteverted 2. Endometrium: 0.29 cm 3. Right Ovary: Appears wnl 4. Left Ovary: Anechoic area seen measures: 2.8 x 2.0 x 2.4 cm. 5. Bilateral Adnexa: Appear wnl 6. Posterior cul-de-sac: Appears wnl Minimal free fluid seen within the pelvis posterior to uterine fundus. Unremarkable anteverted uterus with normal thickness endometrium. Dominant follicular cyst is identif ied with the left ovary. Right ovary appears unremarkable. Both adnexa appear within normal limits. T race fluid posterior to the uterine fundus which is likely physiologic. IMPRESSION: No ultrasound evidence for acute pelvic process.
== END | disposition home or self-care (01) ==
LOC: RADUSWWP 07:15
PROVIDERS: ATTEND Family Medicine
DX: N92.1 Excessive and frequent menstruation with irregular cycle (principal); Z90.79 Acquired absence of other genital organ(s)
CPT/HCPCS: 76856

== ENCOUNTER 2023-11-17 17:51 | Emergency (ER) | payer OTHER ==
[2023-11-17 19:13] LABS: Basophils # (A) 0.1 k/uL (0-0.2); Basophils % (A) 1 %; Eosinophils # (A) 0.2 k/uL (0-0.7); Eosinophils % (A) 2 %; HCT 37.4 % (34.0-46.0); HGB 12.4 gm/dL (11.4-16.0); Lymphocytes # (A) 2.7 k/uL (1.0-4.8); Lymphocytes % (A) 26 %; MCH 27.4 pg (25.0-35.0); MCHC 33.2 g/dL (31.0-37.0); MCV 82.7 fL (80.0-100.0); Mean Platelet Volume 9.1; Monocytes # (A) 0.6 k/uL (0-1.0); Monocytes % (A) 6 %; Neutrophils # (A) 6.7 k/uL (1.3-7.7); Neutrophils % (A) 64 %; Platelet Count 242 k/uL (150-450); RBC 4.53 m/uL (3.80-5.40); RDW 13.6 % (11.5-15.5); WBC 10.5 k/uL (3.8-10.6)
--- NOTE | 2023-11-17 19:30 | ED ---
Abdominal Pain HPI - General Chief Complaint: Abdominal Pain Stated Complaint: Cold sweats, back pain from fall Time Seen by Provider: 11/17/23 18:11 Source: patient, RN notes reviewed Mode of arrival: ambulatory Limitations: no limitations - History of Present Illness Initial Comments: This is a 32-year-old female who presents to the emergency department for abdominal pain. States that for the last 4 days she has had upper abdominal pain with ongoing diarrhea. Reports nausea but no vomiting. She is going too many times to count during the day. This was initially liquid, but has since started to develop some form to it. She has felt hot but she has not measured any fevers. States that she is scheduled to have another EGD for further evaluation of this pain. Pain does not radiate into the back. MD Complaint: abdominal pain - Related Data Home Medications Medication Instructions Recorded Confirmed Ferrous Sulfate [Feosol] 325 mg PO DAILY 05/05/19 05/05/19 [id number] Acid 1 cap PO DAILY 05/05/19 05/05/19 [-U Capsule (formulary)] Previous Rx's Medication Instructions Recorded Cephalexin [Keflex] 500 mg PO BID #14 cap 10/16/19 Ondansetron Odt [Zofran Odt] 4 mg PO Q8HR PRN #20 tab 12/10/19 Famotidine [Pepcid] 20 mg PO BID #60 tablet 11/21/22 Sucralfate [Carafate] 1 gm PO ACHS #56 tablet 11/21/22 Loperamide [Imodium] 2 mg PO DIRECTED PRN #30 capsule 11/17/23 Allergies Allergy/AdvReac Type Severity Reaction Status Date / Time latex Allergy Rash/Hives Verified 11/17/23 18:01 Review of Systems ROS Statement: Those systems with pertinent positive or pertinent negative responses have been documented in the HPI. ROS Other: All systems not noted in ROS Statement are negative. Past Medical History Past Medical History: No Reported History Additional Past Medical History / Comment(s): ENDOMETROSIS, pseudotumor cerbri, History of Any Multi-Drug Resistant Organisms: None Reported Past Surgical History: Adenoidectomy, Cholecystectomy, Tonsillectomy Additional Past Surgical History / Comment(s): inocente salpingectomy Past Anesthesia/Blood Transfusion Reactions: Postoperative Nausea & Vomiting (PONV) Past Psychological History: Anxiety, Depression Smoking Status: Never smoker Past Alcohol Use History: None Reported Past Drug Use History: None Reported - Past Family History Father Family Medical History: Diabetes Mellitus General Exam Limitations: no limitations General appearance: alert, in no apparent distress Head exam: Present: atraumatic, normocephalic, normal inspection Respiratory exam: Present: normal lung sounds bilaterally. Absent: respiratory distress, wheezes, rales, rhonchi, stridor Cardiovascular Exam: Present: regular rate, normal rhythm, normal heart sounds. Absent: systolic murmur, diastolic murmur, rubs, gallop, clicks GI/Abdominal exam: Present: soft, tenderness (Upper abdomen), normal bowel sounds. Absent: distended Neurological exam: Present: alert, oriented X3, CN II-XII intact Psychiatric exam: Present: normal affect, normal mood Skin exam: Present: warm, dry, intact, normal color. Absent: rash Course Vital Signs 11/17/23 11/17/23 11/17/23 17:59 21:27 23:34 Temperature 98.5 F 98.3 F 98.2 F Pulse Rate 65 71 76 Respiratory 18 16 16 Rate Blood Pressure 118/75 128/83 134/87 O2 Sat by Pulse 100 100 98 Oximetry Medical Decision Making - Medical Decision Making This is a 32 year old female who presents to the emergency department for abdominal pain and diarrhea. Was pt. sent in by a medical professional or institution? @ -No Did you speak to anyone other than the patient for history? @ -No Did you review nursing and triage notes? @ -Yes, and I agree, it is accurate with regards to the patient's symptoms. Were old charts reviewed? @ -No Differential Diagnosis? @ -Differential Abdominal Pain Women: Appendicitis, Cholecystitis, diverticulosis, ischemic bowel, pancreatitis, hepatitis, UTI, gastroenteritis, AAA, incarcerated hernia, bowel obstruction, constipation, inflammatory bowel, hepatitis, peptic ulcer disease, splenic infarction, perforated viscus, vulvitis, ovarian torsion, PID, kidney stone, placenta abruption, this is not meant to be an all-inclusive list. EKG interpreted by me (3pts min.)? @ -Not obtained X-rays interpreted by me (1pt min.)? @ -KUB x-ray obtained. My interpretation identifies no dilation of the large or small bowel loops. CT interpreted by me (1pt min.)? @ -Not obtained U/S interpreted by me (1pt. min.)? @ -Not obtained What testing was considered but not performed? (CT, X-rays, U/S, labs)? Why? @ -None What meds were considered but not given? Why? @ -None Did you discuss the management of the patient with other professionals? @ -No Did you reconcile home meds? @ -No Was smoking cessation discussed for >3mins.? @ -No Was critical care preformed (if so, how long)? @ -No Were there social determinants of health that impacted care today? How? (Homelessness, low income, unemployed, alcoholism, drug addiction, transportation, low edu. Level, literacy, decrease access to med. care, correction, rehab)? @ -No Was there de-escalation of care discussed even if they declined? (Discuss DNR or withdrawal of care, Hospice)? @ -No What co-morbidities impacted this encounter? (DM, HTN, Smoking, COPD, CAD, Cancer, CVA, Hep., AIDS, mental health diagnosis, sleep apnea, morbid obesity)? @ -None Was patient admitted / discharged? @ -Discharged. Lab work unremarkable. COVID, influenza, RSV testing negative. Urinalysis negative for signs of infection. KUB x-ray demonstrates fecal and gas material throughout the colon and rectum with a nonobstructive bowel gas pattern. She was treated with IV fluids. She declined Bentyl or anything for discomfort or nausea at that time. Prescription for Imodium provided. Advised remaining well-hydrated and slowly advancing her diet as tolerated. Patient discharged home in stable condition. Case discussed with ED attending, Dr. Brewer. Return precautions reviewed in depth, the patient is instructed to return to the emergency department with any new, worsening, or concerning symptoms. Patient verbalized understanding. Undiagnosed new problem with uncertain prognosis? @ -None Drug Therapy requiring intensive monitoring for toxicity (Heparin, Nitro, Insulin, Cardizem)? @ -None Were any procedures done? @ -None Diagnosis/symptom? @ -Gastroenteritis Acute, or Chronic, or Acute on Chronic? @ -Acute Uncomplicated (without systemic symptoms) or Complicated (systemic symptoms)? @ -Uncomplicated Side effects of treatment? @ -None Exacerbation, Progression, or Severe Exacerbation] @ -Not applicable Poses a threat to life or bodily function? @ -No - Lab Data Result diagrams: 11/17/23 18:57 11/17/23 18:57 Lab Results 11/17/23 11/17/23 11/17/23 Range/Units 18:57 18:57 18:57 WBC 10.5 (3.8-10.6) k/uL RBC 4.53 (3.80-5.40) m/uL Hgb 12.4 (11.4-16.0) gm/dL Hct 37.4 (34.0-46.0) % MCV 82.7 (80.0-100.0) fL MCH 27.4 (25.0-35.0) pg MCHC 33.2 (31.0-37.0) g/dL RDW 13.6 (11.5-15.5) % Plt Count 242 (150-450) k/uL MPV 9.1 Neutrophils % 64 % Lymphocytes % 26 % Monocytes % 6 % Eosinophils % 2 % Basophils % 1 % Neutrophils # 6.7 (1.3-7.7) k/uL Lymphocytes # 2.7 (1.0-4.8) k/uL Monocytes # 0.6 (0-1.0) k/uL Eosinophils # 0.2 (0-0.7) k/uL Basophils # 0.1 (0-0.2) k/uL Sodium 139 (137-145) mmol/L Potassium 4.4 (3.5-5.1) mmol/L Chloride 105 (98-107) mmol/L Carbon Dioxide 27 (22-30) mmol/L Anion Gap 7 mmol/L BUN 13 (7-17) mg/dL Creatinine 0.57 (0.52-1.04) mg/dL Est GFR (CKD-EPI)AfAm >90 (>60 ml/min/1.73 sqM) Est GFR (CKD-EPI)NonAf >90 (>60 ml/min/1.73 sqM) Glucose 87 (74-99) mg/dL Plasma Lactic Acid Danial 1.5 (0.7-2.0) mmol/L Calcium 9.7 (8.4-10.2) mg/dL Magnesium (1.6-2.3) mg/dL Total Bilirubin 0.5 (0.2-1.3) mg/dL AST 20 (14-36) U/L ALT 17 (4-34) U/L Alkaline Phosphatase 67 (38-126) U/L Total Protein 7.1 (6.3-8.2) g/dL Albumin 4.3 (3.5-5.0) g/dL Amylase 42 (30-110) U/L Lipase 50 (23-300) U/L Urine Color Urine Appearance (Clear) Urine pH (5.0-8.0) Ur Specific [place] (1.001-1.035) Urine Protein (Negative) Urine Glucose (UA) (Negative) Urine Ketones (Negative) Urine Blood (Negative) Urine Nitrite (Negative) Urine Bilirubin (Negative) Urine Urobilinogen (<2.0) mg/dL Ur Leukocyte Esterase (Negative) Urine HCG, Qual (Not Detectd) Influenza Type A (PCR) (Not Detectd) Influenza Type B (PCR) (Not Detectd) RSV (PCR) (Not Detectd) SARS-CoV-2 (PCR) (Not Detectd) 11/17/23 11/17/23 11/17/23 Range/Units 18:57 19:17 19:17 WBC (3.8-10.6) k/uL RBC (3.80-5.40) m/uL Hgb (11.4-16.0) gm/dL Hct (34.0-46.0) % MCV (80.0-100.0) fL MCH (25.0-35.0) pg MCHC (31.0-37.0) g/dL RDW (11.5-15.5) % Plt Count (150-450) k/uL MPV Neutrophils % % Lymphocytes % % Monocytes % % Eosinophils % % Basophils % % Neutrophils # (1.3-7.7) k/uL Lymphocytes # (1.0-4.8) k/uL Monocytes # (0-1.0) k/uL Eosinophils # (0-0.7) k/uL Basophils # (0-0.2) k/uL Sodium (137-145) mmol/L Potassium (3.5-5.1) mmol/L Chloride (98-107) mmol/L Carbon Dioxide (22-30) mmol/L Anion Gap mmol/L BUN (7-17) mg/dL Creatinine (0.52-1.04) mg/dL Est GFR (CKD-EPI)AfAm (>60 ml/min/1.73 sqM) Est GFR (CKD-EPI)NonAf (>60 ml/min/1.73 sqM) Glucose (74-99) mg/dL Plasma Lactic Acid Danial (0.7-2.0) mmol/L Calcium (8.4-10.2) mg/dL Magnesium (1.6-2.3) mg/dL Total Bilirubin (0.2-1.3) mg/dL AST (14-36) U/L ALT (4-34) U/L Alkaline Phosphatase (38-126) U/L Total Protein (6.3-8.2) g/dL Albumin (3.5-5.0) g/dL Amylase (30-110) U/L Lipase (23-300) U/L Urine Color Colorless Urine Appearance Clear (Clear) Urine pH 6.0 (5.0-8.0) Ur Specific [place] 1.020 (1.001-1.035) Urine Protein Negative (Negative) Urine Glucose (UA) Negative (Negative) Urine Ketones Negative (Negative) Urine Blood Negative (Negative) Urine Nitrite Negative (Negative) Urine Bilirubin Negative (Negative) Urine Urobilinogen <2.0 (<2.0) mg/dL Ur Leukocyte Esterase Negative (Negative) Urine HCG, Qual Not Detected (Not Detectd) Influenza Type A (PCR) Not Detected (Not Detectd) Influenza Type B (PCR) Not Detected (Not Detectd) RSV (PCR) Not Detected (Not Detectd) SARS-CoV-2 (PCR) Not Detected (Not Detectd) 11/17/23 Range/Units 19:18 WBC (3.8-10.6) k/uL RBC (3.80-5.40) m/uL Hgb (11.4-16.0) gm/dL Hct (34.0-46.0) % MCV (80.0-100.0) fL MCH (25.0-35.0) pg MCHC (31.0-37.0) g/dL RDW (11.5-15.5) % Plt Count (150-450) k/uL MPV Neutrophils % % Lymphocytes % % Monocytes % % Eosinophils % % Basophils % % Neutrophils # (1.3-7.7) k/uL Lymphocytes # (1.0-4.8) k/uL Monocytes # (0-1.0) k/uL Eosinophils # (0-0.7) k/uL Basophils # (0-0.2) k/uL Sodium (137-145) mmol/L Potassium (3.5-5.1) mmol/L Chloride (98-107) mmol/L Carbon Dioxide (22-30) mmol/L Anion Gap mmol/L BUN (7-17) mg/dL Creatinine (0.52-1.04) mg/dL Est GFR (CKD-EPI)AfAm (>60 ml/min/1.73 sqM) Est GFR (CKD-EPI)NonAf (>60 ml/min/1.73 sqM) Glucose (74-99) mg/dL Plasma Lactic Acid Danial (0.7-2.0) mmol/L Calcium (8.4-10.2) mg/dL Magnesium 2.0 (1.6-2.3) mg/dL Total Bilirubin (0.2-1.3) mg/dL AST (14-36) U/L ALT (4-34) U/L Alkaline Phosphatase (38-126) U/L Total Protein (6.3-8.2) g/dL Albumin (3.5-5.0) g/dL Amylase (30-110) U/L Lipase (23-300) U/L Urine Color Urine Appearance (Clear) Urine pH (5.0-8.0) Ur Specific [place] (1.001-1.035) Urine Protein (Negative) Urine Glucose (UA) (Negative) Urine Ketones (Negative) Urine Blood (Negative) Urine Nitrite (Negative) Urine Bilirubin (Negative) Urine Urobilinogen (<2.0) mg/dL Ur Leukocyte Esterase (Negative) Urine HCG, Qual (Not Detectd) Influenza Type A (PCR) (Not Detectd) Influenza Type B (PCR) (Not Detectd) RSV (PCR) (Not Detectd) SARS-CoV-2 (PCR) (Not Detectd) - Radiology Data Radiology results: report reviewed, image reviewed Disposition Clinical Impression: Gastroenteritis Disposition: HOME SELF-CARE Instructions (If sedation given, give patient instructions): Gastroenteritis (ED), Acute Diarrhea (ED) Additional Instructions: Return to the emergency department with any new, worsening, or concerning symptoms. You can try taking the Imodium as prescribed for the diarrhea. Make sure you remain well-hydrated. Follow up with your primary care provider in 1-2 days. Prescriptions: Loperamide [Imodium] 2 mg PO DIRECTED PRN #30 capsule PRN Reason: Diarrhea Is patient prescribed a controlled substance at d/c from ED?: No Referrals: Bib Sorto MD [Primary Care Provider] - 1-2 days Time of Disposition: 22:55
[2023-11-17 19:31] LABS: Appearance,Urine Clear (Clear); Bilirubin,Urine Negative (Negative); Blood,Urine Negative (Negative); Color,Urine Colorless; Glucose,Urine (UA) Negative (Negative); Ketones,Urine Negative (Negative); Leukocyte Esterase,Urine Negative (Negative); Nitrite,Urine Negative (Negative); Protein,Urine Negative (Negative); Urobilinogen,Urine <2.0 mg/dL (<2.0)
[2023-11-17] MEDS: SODIUM CHLORIDE 0.9% 1,000 ML IV STA (19:39)
[2023-11-17 19:43] LABS: ALT 17 U/L (4-34); AST 20 U/L (14-36); African American GFR (CKD) >90 (>60 ml/min/1.73 sqM); Albumin 4.3 g/dL (3.5-5.0); Alkaline Phosphatase 67 U/L (38-126); Amylase 42 U/L (30-110); Anion Gap 7 mmol/L; Blood Urea Nitrogen 13 mg/dL (7-17); Calcium 9.7 mg/dL (8.4-10.2); Carbon Dioxide 27 mmol/L (22-30); Chloride 105 mmol/L (98-107); Glucose 87 mg/dL (74-99); Lipase 50 U/L (23-300); Non-African American GFR(CKD) >90 (>60 ml/min/1.73 sqM); Potassium 4.4 mmol/L (3.5-5.1); Sodium 139 mmol/L (137-145); Total Bilirubin 0.5 mg/dL (0.2-1.3); Total Protein 7.1 g/dL (6.3-8.2)
[2023-11-17 21:28] VITALS: RESP 16
[2023-11-17] MEDS: DICYCLOMINE 10 MG/ML 2 ML AMP IM STA (21:35)
--- NOTE | 2023-11-17 22:14 | XR ---
EXAMINATION TYPE: XR KUB DATE OF EXAM: 11/17/2023 8:15 PM CLINICAL INDICATION:Female, 32 years old with history of Abdominal pain; H COMPARISON: None. TECHNIQUE: Supine radiographic view/s of the abdomen/pelvis obtained. FINDINGS: The bowel gas pattern is nonspecific, likely nonobstructive without dilated loops of small or large b owel. Fecal material and gas are demonstrated throughout the colon and rectum. No gross evidence of o rganomegaly. No evidence of pneumoperitoneum in the limitations of supine technique. No pathologic ca lcifications are seen. Osseous structures appear grossly intact. Mild S-shaped thoracolumbar scolio sis. Tiny radiodensity over the right upper quadrant could be extrinsic or postoperative such as from chol ecystectomy. IMPRESSION: Nonspecific, likely nonobstructive bowel gas pattern. If concern persists, consider follow-up radiogr aphs and/or CT.
[2023-11-17] MEDS: ONDANSETRON 4 MG ODT STARTER PACK 2 TAB BTL PO STA (23:30)
[2023-11-17] MEDS: DIPHENOX-ATROP STARTER PACK 8 TAB BTL PO STA (23:30)
[2023-11-17 23:35] VITALS: BP 134/87; PULSE 76; TEMP 98.2
== END 2023-11-17 23:36 | disposition home or self-care (01) ==
LOC: EC 17:51
DX: K52.9 Noninfective gastroenteritis and colitis, unspecified (principal); Z91.040 Latex allergy status; W19.XXXA Unspecified fall, initial encounter
CPT/HCPCS: 36415; 74018; 80053; 81003; 81025; 82150; 83605; 83690; 83735; 85025; 87636